=== PATIENT | female | born 1970 | race Caucasian/White ===

== ENCOUNTER 2020-10-26 06:55 | Outpatient (REF) | payer MEDICARE, MEDICAID, SELFPAY ==
[2020-10-26 11:20] LABS: MANUAL DIFF FLAG NO
[2020-10-26 11:39] LABS: Basophils Percent Auto 0.4 % (0-2); Eosinophils Percent Auto 2.6 % (0-4); Hematocrit 45.2 % (37-47); Hemoglobin 14.7 g/dl (12.0-16.0); Imm Gran Pct Auto 0.6 % (0.0-0.4); Lymphocytes Absolute Auto 3.1 X10*3/uL (1.2-4.9); Lymphocytes Percent Auto 19.8 % (20-40); Mean Corpuscular HGB Conc 32.5 g/dl (31.0-35.0); Mean Corpuscular Hemoglobin 28.9 pg (27.0-33.0); Mean Corpuscular Volume 88.8 fL (80-98); Mean Platelet Volume 11.4 fL (9.4-12.3); Monocytes Absolute Auto 0.9 X10*3/uL (0.1-1.2); Neutrophils Percent Auto 70.6 % (45-73); Platelet Count 374 X10*3/uL (160-400); Red Blood Count 5.09 X10*6/uL (4.20-5.50); Red Cell Distribution Width 13.8 % (11.0-16.0); White Blood Count 15.6 X10*3/uL (4.8-10.8)
[2020-10-26 11:40] LABS: Basophils Absolute Auto 0.1 X10*3/uL (0.0-0.2); Eosinophils Absolute Auto 0.4 X10*3/uL (0.0-0.4)
[2020-10-26 11:46] LABS: Alanine Aminotransferase 12 U/L (0-31); Albumin Level 4.1 g/dL (3.5-5.0); Alkaline Phosphatase 85 U/L (39-117); Anion Gap 15 (12-20); Aspartate Amino Transferase 10 U/L (5-31); Bilirubin Total 0.4 mg/dL (0.0-1.0); Blood Urea Nitrogen 9 mg/dL (9-16); Calcium 9.1 mg/dL (8.4-10.2); Carbon Dioxide 28 mmol/L (22-29); Chloride 102 mmol/L (96-108); Cholesterol 199 mg/dL; Estimated Glomerular Filt Rate > 60; Glucose Fasting 83 mg/dL (60-99); HDL Cholesterol 32 mg/dL; LDL Cholesterol Calculated 135 mg/dl; Potassium 4.9 mmol/l (3.3-5.1); Sodium 140 mmol/L (135-145); Total Protein 6.5 g/dL (6.5-8.0); Triglycerides 161 mg/dL
[2020-10-26 12:07] LABS: Thyroid Stimulating Hormone 1.55 uIU/mL (0.32-4.0); Vitamin D 25-OH Total 21.5 ng/mL (>30)
[2020-10-26 12:22] LABS: T4 Thyroxine 6.6 ug/dL (4.5-12.0)
[2020-10-26 12:24] LABS: Folate 3.8 ng/mL (> or = 4.0); Vitamin B12 242 pg/mL (200-900)
== END 2020-10-26 06:56 | disposition home or self-care (01) ==
LOC: HO.HMGCLDS 06:55
PROVIDERS: PCP Internal Medicine; Visit Provider Internal Medicine
DX: Z00.00 Encounter for general adult medical examination without abnormal findings (principal); E66.01 Morbid (severe) obesity due to excess calories; E78.00 Pure hypercholesterolemia, unspecified; M50.30 Other cervical disc degeneration, unspecified cervical region; K21.9 Gastro-esophageal reflux disease without esophagitis; R13.10 Dysphagia, unspecified; F17.200 Nicotine dependence, unspecified, uncomplicated
CPT/HCPCS: 36415; 80053; 80061; 82306; 82607; 82746; 84436; 84443; 85025

== ENCOUNTER 2020-11-02 13:27 | Outpatient (REF) | payer MEDICARE, MEDICAID, SELFPAY ==
--- NOTE | 2020-11-02 13:32 | XR_ITS ---
EXAMINATION: XR KNEE, RIGHT CLINICAL INFORMATION: Pain COMPARISON: Previous x-rays most recent April 2016 TECHNIQUE: Four views of the right knee. FINDINGS: Bone alignment is normal. No fracture or dislocation is seen. There is mild arthritis at the medial femoral tibial and patellofemoral joints with small osteophytes. There is no joint effusion. XR/XR knee RT 4V IMPRESSION: Mild arthritis at the medial femoral tibial and patellofemoral joints.
== END 2020-11-02 13:28 | disposition home or self-care (01) ==
LOC: HO.HMGCX 13:27
PROVIDERS: PCP Internal Medicine; Visit Provider Internal Medicine
DX: M25.561 Pain in right knee (principal)
CPT/HCPCS: 73564

== ENCOUNTER → 2020-12-29 09:21 | Outpatient (BNVA) | payer MEDICARE, MEDICAID, SELFPAY | PROVIDERS: PCP Internal Medicine; Visit Provider Orthopaedic Surgery | DX: M17.11 Unilateral primary osteoarthritis, right knee (principal) | CPT/HCPCS: 99202 ==

== ENCOUNTER 2021-01-26 06:54 | Outpatient (REF) | payer MEDICARE, MEDICAID, SELFPAY ==
[2021-01-26 11:04] LABS: MANUAL DIFF FLAG NO
[2021-01-26 11:22] LABS: Basophils Absolute Auto 0.1 X10*3/uL (0.0-0.2); Basophils Percent Auto 0.6 % (0-2); Eosinophils Absolute Auto 0.4 X10*3/uL (0.0-0.4); Eosinophils Percent Auto 3.1 % (0-4); Hematocrit 43.4 % (37-47); Hemoglobin 14.1 g/dl (12.0-16.0); Imm Gran Abs Auto 0.09 X10*3/uL (0.00-0.03); Imm Gran Pct Auto 0.6 % (0.0-0.4); Lymphocytes Absolute Auto 2.9 X10*3/uL (1.2-4.9); Lymphocytes Percent Auto 20.5 % (20-40); Mean Corpuscular HGB Conc 32.5 g/dl (31.0-35.0); Mean Corpuscular Volume 89.3 fL (80-98); Mean Platelet Volume 11.3 fL (9.4-12.3); Monocytes Absolute Auto 0.9 X10*3/uL (0.1-1.2); Monocytes Percent Auto 6.3 % (2-11); Neutrophils Absolute Auto 9.7 X10*3/uL (2.0-8.3); Neutrophils Percent Auto 68.9 % (45-73); Platelet Count 341 X10*3/uL (160-400); Red Blood Count 4.86 X10*6/uL (4.20-5.50); Red Cell Distribution Width 14.2 % (11.0-16.0); White Blood Count 14.1 X10*3/uL (4.8-10.8)
[2021-01-26 12:13] LABS: Free T4 (Free Thyroxine) 0.92 ng/dL (0.71-1.85); Vitamin D 25-OH Total 27.1 ng/mL (>30)
[2021-01-26 12:17] LABS: Alanine Aminotransferase 14 U/L (0-31); Albumin Level 4.2 g/dL (3.5-5.0); Alkaline Phosphatase 92 U/L (39-117); Anion Gap 15 (12-20); Aspartate Amino Transferase 11 U/L (5-31); Bilirubin Total 0.5 mg/dL (0.0-1.0); Blood Urea Nitrogen 10 mg/dL (9-16); Calcium 8.8 mg/dL (8.4-10.2); Carbon Dioxide 24 mmol/L (22-29); Chloride 105 mmol/L (96-108); Cholesterol 207 mg/dL; Estimated Glomerular Filt Rate > 60; Glucose Random 99 mg/dL (60-115); HDL Cholesterol 31 mg/dL; LDL Cholesterol Calculated 142 mg/dl; Potassium 4.2 mmol/L (3.3-5.1); Sodium 140 mmol/L (135-145); Total Protein 6.5 g/dL (6.5-8.0); Triglycerides 171 mg/dL
[2021-01-26 12:20] LABS: Folate 6.6 ng/mL (> or = 4.0); Vitamin B12 344 pg/mL (200-900)
== END 2021-01-26 06:55 | disposition home or self-care (01) ==
LOC: HO.HMGCLDS 06:54
PROVIDERS: PCP Internal Medicine; Visit Provider Internal Medicine
DX: E78.00 Pure hypercholesterolemia, unspecified (principal); E53.8 Deficiency of other specified B group vitamins; E55.9 Vitamin D deficiency, unspecified
CPT/HCPCS: 36415; 80053; 80061; 82306; 82607; 82746; 84439; 84443; 85025

== ENCOUNTER 2021-06-23 10:04 | Outpatient (REF) | payer MEDICARE, MEDICAID, SELFPAY ==
--- NOTE | ~2021-06-23 | MM_ITS ---
EXAMINATION: MM SCREENING DIGITAL BREAST TOMOSYNTHESIS, BILATERAL CLINICAL INFORMATION: Screening. Asymptomatic. The lifetime risk of breast cancer based on the Tyrer-Cuzick Model is 10%. COMPARISON: Mammography: 06/15/2020, 06/10/2019, 05/31/2018 TECHNIQUE: Digital breast tomosynthesis is performed in both the craniocaudal and mediolateral oblique views along with computer-aided detection (CAD). Synthesized 2D images are generated from the tomosynthesis. FINDINGS: There are scattered areas of fibroglandular density (ACR BI-RADS breast composition Category b). There are no significant masses, abnormal calcifications, or other abnormalities. Parenchymal pattern is similar to prior studies. The axilla and skin contours are unremarkable. MM/MM tomosynthesis screening BI IMPRESSION: No mammographic evidence of malignancy. ASSESSMENT: BI-RADS 1: Negative RECOMMENDATION: Routine annual mammography screening. This patient's information was entered into a reminder system with a target due date for their next mammogram.
== END 2021-06-23 10:05 | disposition home or self-care (01) ==
LOC: HO.MAMMO 10:04
PROVIDERS: Visit Provider Internal Medicine
DX: Z12.31 Encounter for screening mammogram for malignant neoplasm of breast (principal)
CPT/HCPCS: 77063; 77067

== ENCOUNTER 2021-08-10 07:20 | Outpatient (REF) | payer MEDICARE, MEDICAID, SELFPAY ==
[2021-08-10 11:29] LABS: MANUAL DIFF FLAG NO
[2021-08-10 11:33] LABS: Basophils Absolute Auto 0.1 X10*3/uL (0.0-0.2); Basophils Percent Auto 0.7 % (0-2); Eosinophils Absolute Auto 0.5 X10*3/uL (0.0-0.4); Eosinophils Percent Auto 3.6 % (0-4); Hematocrit 45.5 % (37-47); Hemoglobin 14.9 g/dl (12.0-16.0); Imm Gran Pct Auto 0.7 % (0.0-0.4); Lymphocytes Absolute Auto 3.3 X10*3/uL (1.2-4.9); Lymphocytes Percent Auto 24.6 % (20-40); Mean Corpuscular HGB Conc 32.7 g/dl (31.0-35.0); Mean Corpuscular Hemoglobin 28.9 pg (27.0-33.0); Mean Corpuscular Volume 88.3 fL (80-98); Mean Platelet Volume 11.2 fL (9.4-12.3); Monocytes Absolute Auto 0.7 X10*3/uL (0.1-1.2); Monocytes Percent Auto 5.2 % (2-11); Neutrophils Absolute Auto 8.8 X10*3/uL (2.0-8.3); Neutrophils Percent Auto 65.2 % (45-73); Platelet Count 365 X10*3/uL (160-400); Red Blood Count 5.15 X10*6/uL (4.20-5.50); Red Cell Distribution Width 13.7 % (11.0-16.0); White Blood Count 13.4 X10*3/uL (4.8-10.8)
[2021-08-10 12:06] LABS: Estimated Average Glucose 114 mg/dL; Hemoglobin A1c % 5.6 %
[2021-08-10 12:07] LABS: Alanine Aminotransferase 11 U/L (0-31); Albumin Level 4.3 g/dL (3.5-5.0); Alkaline Phosphatase 95 U/L (39-117); Anion Gap 15 (12-20); Aspartate Amino Transferase 12 U/L (5-31); Bilirubin Total 0.4 mg/dL (0.0-1.0); Blood Urea Nitrogen 10 mg/dL (9-16); Calcium 8.9 mg/dL (8.4-10.2); Carbon Dioxide 23 mmol/L (22-29); Chloride 105 mmol/L (96-108); Cholesterol 219 mg/dL; Estimated Glomerular Filt Rate > 60; Glucose Random 87 mg/dL (60-115); HDL Cholesterol 30 mg/dL; LDL Cholesterol Calculated 154 mg/dl; Potassium 4.7 mmol/L (3.3-5.1); Sodium 138 mmol/L (135-145); Total Protein 6.7 g/dL (6.5-8.0); Triglycerides 179 mg/dL
[2021-08-10 12:17] LABS: Free T4 (Free Thyroxine) 0.93 ng/dL (0.71-1.85); Thyroid Stimulating Hormone 1.84 uIU/mL (0.32-4.0); Vitamin D 25-OH Total 29.5 ng/mL (>30)
[2021-08-10 12:30] LABS: Folate 3.6 ng/mL (> or = 4.0); Vitamin B12 301 pg/mL (200-900)
== END 2021-08-10 07:21 | disposition home or self-care (01) ==
LOC: HO.HMGCLDS 07:20
PROVIDERS: PCP Internal Medicine; Visit Provider Internal Medicine
DX: E78.00 Pure hypercholesterolemia, unspecified (principal)
CPT/HCPCS: 36415; 80053; 80061; 82306; 82607; 82746; 83036; 84439; 84443; 85025

== ENCOUNTER → 2021-08-17 14:41 | Outpatient (BNVA) | payer MEDICARE, MEDICAID, SELFPAY | PROVIDERS: PCP Internal Medicine; Visit Provider Orthopaedic Surgery | DX: M79.642 Pain in left hand (principal); M79.641 Pain in right hand; R20.0 Anesthesia of skin; R20.2 Paresthesia of skin | CPT/HCPCS: 99202 ==

== ENCOUNTER 2021-09-16 08:46 | Outpatient (REF) | payer MEDICARE, MEDICAID, SELFPAY ==
--- NOTE | 2021-09-16 08:52 | EMG_ITS ---
HISTORY OF PRESENT ILLNESS: This is a 50-year-old woman with a 4-year history of bilateral upper extremity pain, numbness, and tingling with worsening electric shocks and sharp pains in the left wrist recently. PHYSICAL EXAMINATION: She is alert and oriented with normal intellectual functions. Cranial nerves II through XII are normal. Muscle tone and strength are normal. No Tinel or Phalen sign. IMPRESSION: Carpal tunnel syndrome. Nerve conduction EMG study impression: Mild to moderate carpal tunnel syndrome on the right. Mild carpal tunnel syndrome on the left. Normal EMG of the left C5-T1 innervated muscles. MD ELICEO De La Rosa/MEKA / [id number]
== END 2021-09-16 08:47 | disposition home or self-care (01) ==
LOC: HO.NEURO 08:46
PROVIDERS: Visit Provider Orthopaedic Surgery
DX: R20.0 Anesthesia of skin (principal); R20.2 Paresthesia of skin
CPT/HCPCS: 95885; 95913

== ENCOUNTER → 2021-09-28 12:32 | Outpatient (BNVA) | payer MEDICARE, MEDICAID, SELFPAY | PROVIDERS: PCP Internal Medicine; Visit Provider Orthopaedic Surgery | DX: G56.03 Carpal tunnel syndrome, bilateral upper limbs (principal) | CPT/HCPCS: 99212 ==

== ENCOUNTER 2021-10-06 10:18 | Day surgery (SDC) | payer MEDICARE, MEDICAID, SELFPAY ==
[2021-10-06 10:28] VITALS: BMI 40.2
[2021-10-06 10:36] VITALS: BP 160/92; PULSE 98; RESP 16; TEMP 36.3; O2SAT 97
--- NOTE | 2021-10-06 11:44 | MHC.SHP ---
Pre-Procedural Eval Section A Date of Service: 10/06/21 The patient is an INPATIENT: No Changes since office visit: No Cold of Flu in the past 2 weeks, No New Medical Problems, No Changes in Medication and No Patient answered all questions The History & Physical has been completed within 30 days and I have reviewed it.: Yes Section B Chief Complaint: carpal tunnel Allergies: Allergies Allergy/AdvReac Type Severity Reaction Status Date / Time amoxicillin [Amoxicillin] Allergy Mild HIVES/SHAKING, Verified 09/28/21 12:41 hives, hives azithromycin [From Zithromax] Allergy Mild NAUSEA Verified 09/28/21 12:41 doxycycline [Doxycycline] Allergy Mild VOMITING Verified 09/28/21 12:41 Plan I have reviewed the history and physical and performed a pertinent physical examination on my patient. No changes have occurred unless specified.
--- NOTE | 2021-10-06 11:45 | W.PM.OPN ---
Operative Note Operative Note Date of Service: 10/06/21 Narrative: Preop diagnosis: 1. left Carpal tunnel syndrome Postop diagnosis: same Procedure: 1. left Carpal tunnel release Surgeon: Rach Gonzalez MD Anesthesia: local block using 1% lidocaine with epinephrine Findings: Thickened transverse carpal ligament. EBL: Less than 5 mL Specimens: None Complications: None Disposition: Brought to recovery room in stable condition Plan: Follow-up for 10-14 days for wound check and suture removal Indications: The patient is 51 years old, with left carpal tunnel syndrome that has been unresponsive to nonoperative management. The risks and benefits of operative treatment including but not limited to risk of damage to blood vessels, nerves, tendons, infection, persistent pain, persistent symptoms, or possible need for additional surgery were discussed with the patient and the patient wishes to proceed with surgery. Procedure: Once consent was obtained a local block was performed using a combination of 1% lidocaine with epinephrine. The patient was then brought back to the operating suite and placed on the operative table in supine position. A tourniquet was applied to the proximal aspect of the left upper extremity and the limb was prepped and draped in a standard surgical fashion. Once assured that we had a good block, a 1.5 cm longitudinal incision was made centered over the carpal tunnel. The incision was made through the skin to the subcutaneous tissues using a #15 blade. Dissection was made down to the level of the transverse carpal ligament with care being taken to protect the palmar cutaneous nerve. Once the transverse carpal ligament was clearly visualized, a longitudinal incision was made in the transverse carpal ligament 1st using a #15 blade, then using tenotomy scissors under direct visualization. Care was taken to look for and protect the motor branch of the median nerve when seen in this area. Once satisfied with our carpal tunnel release the wound was copiously irrigated with normal saline and hemostasis was obtained with a brief period of local pressure. The skin edges were reapproximated with some 5.0 nylon suture material and a sterile dressing was applied. The patient appears to have tolerated the procedure well and with no complications. All digits were well vascularized at the conclusion of the case.
[2021-10-06 12:20] VITALS: BP 147/78; PULSE 83; RESP 18; TEMP 36.7; O2SAT 95
== END 2021-10-06 12:34 | disposition home or self-care (01) ==
PROVIDERS: PCP Internal Medicine; Visit Provider Orthopaedic Surgery
PROC: (CPT 64721; principal; 2021-10-06 11:50)
DX: G56.02 Carpal tunnel syndrome, left upper limb (principal); E66.9 Obesity, unspecified; Z68.41 Body mass index [BMI] 40.0-44.9, adult; Z88.0 Allergy status to penicillin; Z88.1 Allergy status to other antibiotic agents; F17.210 Nicotine dependence, cigarettes, uncomplicated
CPT/HCPCS: 64721

== ENCOUNTER → 2021-10-18 13:39 | Outpatient (BNVA) | payer MEDICARE, MEDICAID, SELFPAY | PROVIDERS: PCP Internal Medicine; Visit Provider Orthopaedic Surgery | DX: G56.03 Carpal tunnel syndrome, bilateral upper limbs (principal) | CPT/HCPCS: 99212 ==

== ENCOUNTER → 2021-11-29 09:46 | Outpatient (BNVA) | payer MEDICARE, MEDICAID, SELFPAY | PROVIDERS: Visit Provider Orthopaedic Surgery | DX: Z47.89 Encounter for other orthopedic aftercare (principal); G56.01 Carpal tunnel syndrome, right upper limb; Z86.69 Personal history of other diseases of the nervous system and sense organs | CPT/HCPCS: 99202; 99212 ==

== ENCOUNTER 2021-12-19 08:30 | Outpatient (RCR) | payer MEDICARE, MEDICAID, SELFPAY | END 2022-02-08 11:49 | disposition home or self-care (01) | LOC: HO.OT 08:30 | PROVIDERS: PCP Internal Medicine; Visit Provider Orthopaedic Surgery | DX: G56.02 Carpal tunnel syndrome, left upper limb (principal) | CPT/HCPCS: 97035; 97110; 97165 ==

== ENCOUNTER 2021-12-22 11:58 | Outpatient (REF) | payer MEDICARE, MEDICAID, SELFPAY ==
--- NOTE | ~2021-12-22 | XR_ITS ---
EXAMINATION: XR FOOT, LEFT CLINICAL INFORMATION: Left foot pain. COMPARISON: None TECHNIQUE: AP, lateral, and oblique views of the left foot. FINDINGS: Mild 1st metatarsophalangeal and hallux sesamoid joint space narrowing with tiny marginal osteophytes. No osseous erosion. No fracture or dislocation. Moderate plantar and tiny dorsal calcaneal enthesophytes. XR/XR foot LT min 3V IMPRESSION: Mild osteoarthritis at the 1st metatarsophalangeal joint and hallux sesamoids. Plantar and dorsal calcaneal spurs.
== END 2021-12-22 11:59 | disposition home or self-care (01) ==
LOC: HO.HMGCX 11:58
PROVIDERS: PCP Internal Medicine; Visit Provider Nurse Practitioner Family
DX: M79.672 Pain in left foot (principal)
CPT/HCPCS: 73630

== ENCOUNTER → 2022-01-03 09:04 | Outpatient (BNVA) | payer MEDICARE, MEDICAID, SELFPAY | PROVIDERS: PCP Internal Medicine; Visit Provider Orthopaedic Surgery | DX: Z47.89 Encounter for other orthopedic aftercare (principal); G56.01 Carpal tunnel syndrome, right upper limb; Z86.69 Personal history of other diseases of the nervous system and sense organs | CPT/HCPCS: 99212 ==

== ENCOUNTER → 2022-03-10 13:44 | Outpatient (BNVA) | payer MEDICARE, MEDICAID, SELFPAY | PROVIDERS: PCP Internal Medicine; Visit Provider Advanced Practice Midwife | DX: N63.20 Unspecified lump in the left breast, unspecified quadrant (principal); N64.4 Mastodynia | CPT/HCPCS: 99212 ==

== ENCOUNTER 2022-03-14 10:22 | Outpatient (REF) | payer MEDICARE, MEDICAID, SELFPAY ==
--- NOTE | ~2022-03-14 | MM_ITS ---
EXAMINATION: MM DIAGNOSTIC DIGITAL BREAST TOMOSYNTHESIS, BILATERAL US DIAGNOSTIC ULTRASOUND BREAST, LEFT CLINICAL INFORMATION: Recent burning pain and cramping near left areola. No discharge. Palpable fullness noted on clinical exam. The lifetime risk of breast cancer based on the Tyrer-Cuzick Model is 8%. COMPARISON: Mammography: 06/23/2021, 06/15/2020, 06/10/2019, 05/31/2018 TECHNIQUE: Digital breast tomosynthesis is performed in both the craniocaudal and mediolateral oblique views along with computer-aided detection (CAD). Synthesized 2D images are generated from the tomosynthesis. Additional right CC and left MLO views are obtained. Ultrasound left breast is targeted to the areas of clinical concern, retroareolar, periareolar, and 3:00 through 9:00 position. Grayscale imaging and color Doppler are performed without and with harmonics. FINDINGS: There are scattered areas of fibroglandular density (ACR BI-RADS breast composition Category b). Parenchymal pattern is similar to prior studies. There is no developing density or interval mass or architectural abnormality. No abnormal calcifications. There is chronic bilateral nipple retraction, similar to prior exams. There is no skin thickening or coarsening of the Dayday's ligaments. Ultrasound demonstrates no cystic or solid mass or architectural abnormality. No focal duct ectasia. No skin thickening or edema tracking in soft tissue planes. No hyperemia on color Doppler. Results are discussed with the patient and her mother at time of visit. MM/MM tomosynthesis diagnostic BI IMPRESSION: -No mammographic evidence of malignancy or inflammatory changes. -Mammography similar to prior studies. -Unremarkable targeted left breast ultrasound. ASSESSMENT: BI-RADS 2: Benign RECOMMENDATION: 1. Patient should be managed based on the clinical impression. If clinically indicated, further evaluation may be considered with surgical consult. Decision to proceed with biopsy should be based on clinical grounds and degree of clinical concern. 2. Otherwise, routine annual screening mammography. This patient's information was entered into a reminder system with a target due date for their next mammogram.
== END 2022-03-14 10:23 | disposition home or self-care (01) ==
LOC: HO.MAMMO 10:22
PROVIDERS: PCP Internal Medicine; Visit Provider Internal Medicine
DX: N64.4 Mastodynia (principal); N63.20 Unspecified lump in the left breast, unspecified quadrant
CPT/HCPCS: 76642; 77062; 77066

== ENCOUNTER 2022-07-10 09:01 | Outpatient (REF) | payer MEDICARE, MEDICAID, SELFPAY ==
[2022-07-10 12:06] LABS: Alanine Aminotransferase 12 U/L (0-31); Albumin Level 4.5 g/dL (3.5-5.0); Alkaline Phosphatase 87 U/L (39-117); Anion Gap 17 (12-20); Aspartate Amino Transferase 13 U/L (5-31); Bilirubin Total 0.3 mg/dL (0.0-1.0); Blood Urea Nitrogen 12 mg/dL (9-16); Carbon Dioxide 27 mmol/L (22-29); Chloride 102 mmol/L (96-108); Cholesterol 228 mg/dL; Estimated Glomerular Filt Rate > 60; Glucose Random 100 mg/dL (60-115); HDL Cholesterol 31 mg/dL; LDL Cholesterol Calculated 151 mg/dl; Potassium 4.7 mmol/L (3.3-5.1); Sodium 141 mmol/L (135-145); Total Protein 6.9 g/dL (6.5-8.0); Triglycerides 230 mg/dL
== END 2022-07-10 09:02 | disposition home or self-care (01) ==
LOC: HO.HMGCLDS 09:01
PROVIDERS: PCP Internal Medicine; Visit Provider Internal Medicine
DX: E78.00 Pure hypercholesterolemia, unspecified (principal)
CPT/HCPCS: 36415; 80053; 80061

== ENCOUNTER 2022-09-04 08:40 | Outpatient (REF) | payer MEDICARE, MEDICAID, SELFPAY ==
--- NOTE | ~2022-09-04 | XR_ITS ---
EXAMINATION: XR SHOULDER, RIGHT CLINICAL INFORMATION: Sprain of right shoulder joint. COMPARISON: None TECHNIQUE: AP external rotation, Grashey, scapular Y, and axillary views of the right shoulder. FINDINGS: There is mild reduction in the right AC joint space with moderate periarticular spurring. The glenohumeral joint space is preserved. No loose bodies or bony erosive changes seen. There is soft tissue calcification lateral to the greater tuberosity. No visible acute fracture or dislocation. XR/XR shoulder RT min 2V IMPRESSION: 1. Degenerative arthritic changes right A.C. joint. No visible acute fracture or dislocation seen. 2. Soft tissue calcification lateral to the greater tuberosity likely calcific tendinitis.
== END 2022-09-04 08:41 | disposition home or self-care (01) ==
LOC: HO.HMGCX 08:40
PROVIDERS: PCP Internal Medicine; Visit Provider Internal Medicine
DX: S43.401A Unspecified sprain of right shoulder joint, initial encounter (principal)
CPT/HCPCS: 73030

== ENCOUNTER → 2022-09-21 10:43 | Outpatient (BNVA) | payer MEDICARE, MEDICAID, SELFPAY | PROVIDERS: PCP Internal Medicine; Visit Provider Nurse Practitioner Family | DX: M50.322 Other cervical disc degeneration at C5-C6 level (principal); M50.323 Other cervical disc degeneration at C6-C7 level; M96.1 Postlaminectomy syndrome, not elsewhere classified; M54.2 Cervicalgia; Z98.1 Arthrodesis status | CPT/HCPCS: 99202 ==

== ENCOUNTER 2023-03-19 07:31 | Outpatient (REF) | payer MEDICARE, MEDICAID, SELFPAY ==
--- NOTE | ~2023-03-19 | MM_ITS ---
EXAMINATION: MM SCREENING DIGITAL BREAST TOMOSYNTHESIS, BILATERAL CLINICAL INFORMATION: Screening. Asymptomatic. The lifetime risk of breast cancer based on the Tyrer-Cuzick Model is 9%. COMPARISON: Mammography: 03/14/2022, 06/23/2021, 06/15/2020, 06/10/2019 TECHNIQUE: Digital breast tomosynthesis is performed in both the craniocaudal and mediolateral oblique views along with computer-aided detection (CAD). Synthesized 2D images are generated from the tomosynthesis. FINDINGS: There are scattered areas of fibroglandular density (ACR BI-RADS breast composition Category b). There are no significant masses, abnormal calcifications, or other abnormalities. Parenchymal pattern is similar to prior studies. There is no developing density or architectural abnormality. There is mild bilateral nipple retraction again seen similar to prior studies. The axilla and skin contours are unremarkable. No significant changes. MM/MM tomosynthesis screening BI IMPRESSION: No mammographic evidence of malignancy. ASSESSMENT: BI-RADS 2: Benign RECOMMENDATION: Routine annual mammography screening. This patient's information was entered into a reminder system with a target due date for their next mammogram.
== END 2023-03-19 07:32 | disposition home or self-care (01) ==
LOC: HO.MAMMO 07:31
PROVIDERS: PCP Internal Medicine; Visit Provider Internal Medicine
DX: Z12.31 Encounter for screening mammogram for malignant neoplasm of breast (principal)
CPT/HCPCS: 77063; 77067

== ENCOUNTER 2023-05-22 15:49 | Outpatient (AMB) | payer MEDICARE, MEDICAID, SELFPAY ==
[2023-05-22 15:50] VITALS: BP 142/88; PULSE 78; BMI 42.7
--- NOTE | 2023-05-22 15:50 | A.OFFPC_ITS ---
Vital Signs 05/22/23 15:50 Height 5 ft 1 in Weight 226 lb BMI 42.7 BP 142/88 H Blood Pressure Location Lt brachial Position Sitting Pulse 78 Pulse Source Pulse Oximeter Oxygen Delivery Method Room Air Intake Visit Reasons: Blood pressure, cholesterol Allergies amoxicillin [Amoxicillin] Allergy (Mild, Verified 05/22/23 15:51) HIVES/SHAKING, hives, hives azithromycin [From Zithromax] Allergy (Mild, Verified 05/22/23 15:51) NAUSEA doxycycline [Doxycycline] Allergy (Mild, Verified 05/22/23 15:51) VOMITING Tobacco use date assessed: 03/23/23 Dental Screening Dental Screen Date: 05/22/23 Did you have a dental visit in the last 12 months?: Yes Did you have a dental problem in the last 6 months where you did not have access to dental care?: No Was dental information given to patient?: Patient has dentist HPI Blood pressure, cholesterol HPI Details 52-year-old obese female smoker with GERD, cervical degenerative disc disease hypercholesterolemia generalized anxiety disorder coming in for follow- up. Last seen in February 2023 noted with an elevated blood pressure and has was advised to follow this up. Patient was advised to get blood work and for the anxiety was referred to counseling patient is here for follow-up mammograms up-to-date. Review of the notes has seen nurse practitioner for breast reduction referral due to the chronic neck pain.. states BP at home has been controlled SBP < 140 and DBP 80. blood work not done yet. for the breathing - doing good. PAtient complains of R CTS but wanted to postpone t but now it is causing problems and would like to see the Orthopedics. Patient has been very stressed out as mom is sick and patient is helping with that complains of pain on the left Achilles tendon deny any fall or trauma. Went to up-to-date and discussed about the information about the Achilles tendonitis and treatment also [facility] Medical History (Updated 05/22/23 @ 16:31 by Jaden Barros MD) Anxiety and depression Carpal tunnel syndrome Degenerative disc disease, cervical GERD (gastroesophageal reflux disease) Hiatal hernia Hypercholesterolemia Mass of breast, left Migraine Obesity Osteoarthritis of knees, bilateral Tobacco abuse Vitamin D deficiency Surgical History H/O arthroscopic knee surgery History of cervical discectomy History of D&C History of knee surgery History of tonsillectomy Family History Father Myocardial infarction Mother Myocardial infarction Carotid stenosis Cancer of anterior aspect of epiglottis Maternal Grandmother Stomach cancer Maternal Aunt Stomach cancer Breast cancer Maternal Uncle Cardiac arrest Social History Housing: House Alcohol intake: never Patient Tobacco Use Status: Current everyday Tobacco user Tobacco use type: Cigarette Cigarettes Per Day: 10 e-Cigarette/Vaping Use: Never Used Second Hand Smoke Exposure: Yes service: No Current occupational status: disabled Current occupation: rt hand Cognitive needs: No Hearing needs: No Vision needs: Yes Questionnaire PHQ-9 Over the last 2 weeks, how often have you been bothered by any of the following problems? 1. Little interest or pleasure in doing things: not at all 2. Feeling down, depressed, or hopeless: not at all 3. Trouble falling or staying asleep, or sleeping too much: not at all 4. Feeling tired or having little energy: not at all 5. Poor appetite or overeating: not at all 6. Feeling bad about yourself - or that you are a failure or have let yourself or your family down: not at all 7. Trouble concentrating on things, such as reading the newspaper or watching television: not at all 8. Moving or speaking so slowly that other people could have noticed. Or the opposite - being so fidgety or restless that you have been moving around a lot more than usual: not at all 9. Thoughts that you would be better off or of hurting yourself in some way: not at all Total score: 0 Depression Screening Interpretation: Negative Source: Developed by Drs. Rodney Ramires, Joao Gallegos and colleagues, with an educational hal from [employer]. Thrive Questionnaire Date Thrive assessed: 02/12/23 AUDIT C Alcohol Use Questionnaire (AUDIT-C) 1. How often do you have a drink containing alcohol?: Never Total Score: 0 Score Reviewed/Action Taken: No NA-7 AMB Questionnaire NA-7 Date NA - 7 assessed: 02/12/23 Source: Developed by Drs. Rodney Ramires, Haley B.W. Joao Mccracken and colleagues, with an educational hal from [employer]. Physical exam (Primary Care) Vital Signs: Last Vital Signs Pulse 78 05/22/23 15:50 BP 142/88 H 05/22/23 15:50 Oxygen Delivery Method Room Air 05/22/23 15:50 BMI result Body Mass Index 42.7 Tobacco/Smoking Status: Tobacco use Status Tobacco use date assessed 03/23/23 05/22/23 15:57 Patient Tobacco Use Status Current everyday Tobacco 05/22/23 15:57 Tobacco use type Cigarette 05/22/23 15:57 e-Cigarette/Vaping Use Never Used 05/22/23 15:57 PHQ-9: PHQ-9 Score PHQ-9: Total score 0 05/22/23 15:57 Depression Screening Interpretation: Negative Thrive Assessment: Date of Thrive Assessment Date Thrive assessed 02/12/23 05/22/23 15:57 Const General: alert; No acute distress Eyes Conjunctivae: conjunctivae normal Resp Auscultation: clear to auscultation bilaterally Cardio Rate: regular rate Rhythm: regular rhythm GI Inspection: Yes normal to inspection Extrem General: Yes normal to inspection and No edema Assessment and Plan Assessment & Plan (1) Blood pressure elevated without history of HTN: Code(s): R03.0 - Elevated blood-pressure reading, without diagnosis of hypertension Plan: Continue to monitor blood pressure. BP at home is good (2) Positive colorectal cancer screening using Cologuard test: Code(s): R19.5 - Other fecal abnormalities Plan: Reminded about colonoscopy (3) Generalized anxiety disorder: Code(s): F41.1 - Generalized anxiety disorder Plan: will ff up on the counselling (4) Tobacco abuse: Code(s): Z72.0 - Tobacco use Plan: Patient is strongly advised to stop! (5) GERD (gastroesophageal reflux disease): Code(s): K21.9 - Gastro-esophageal reflux disease without esophagitis Plan: Avoid the foods that causes that usually spicy foods, tomato products, juices, coffee, soda and foods that your sensitive to. After eating do not lie down, allow 3-4 hours before in lie down. And keep the head of bed above 30 degrees to avoid the acid from going up. (6) Hypercholesterolemia: Code(s): E78.00 - Pure hypercholesterolemia, unspecified Plan: Avoid fried foods, chicken skin, eggs, butter margarine, pastries and meat. Be it pork or beef they have a lot of cholesterol reminded about the blood work patient is on atorvastatin 10 mg once a day LDL goal of less than 130 and triglyceride of less than 150 (7) Obesity: Code(s): E66.9 - Obesity, unspecified Plan: Diet and exercise (8) Carpal tunnel syndrome of right wrist: Code(s): G56.01 - Carpal tunnel syndrome, right upper limb Plan: referral to orthopedic (9) Achilles tendinitis of left lower extremity: Code(s): M76.62 - Achilles tendinitis, left leg Plan: discussed about trreatment from up todate. Orders: Referrals Orthopedics Referral G56.01 - Carpal tunnel syndrome, right upper limb Coding Level of Care Code Est Pt Level 4 (98798) Diagnoses Blood pressure elevated without history of HTN R03.0 Positive colorectal cancer screening using Cologuard test R19.5 Generalized anxiety disorder F41.1 Tobacco abuse Z72.0 GERD (gastroesophageal reflux disease) K21.9 Hypercholesterolemia E78.00 Obesity E66.9 Carpal tunnel syndrome of right wrist G56.01 Achilles tendinitis of left lower extremity M76.62 Additional Codes PHQ-9 - 82182 - PHQ-9 Billing: Y ([id number])
== END 2023-05-22 16:38 | disposition home or self-care (01) ==
PROVIDERS: Visit Provider Internal Medicine
DX: R03.0 Elevated blood-pressure reading, without diagnosis of hypertension (principal); E66.9 Obesity, unspecified; K21.9 Gastro-esophageal reflux disease without esophagitis; Z68.41 Body mass index [BMI] 40.0-44.9, adult; F41.1 Generalized anxiety disorder; R19.5 Other fecal abnormalities; Z72.0 Tobacco use; E78.00 Pure hypercholesterolemia, unspecified; G56.01 Carpal tunnel syndrome, right upper limb; M76.62 Achilles tendinitis, left leg
CPT/HCPCS: 99214

== ENCOUNTER 2023-06-13 13:21 | Outpatient (AMB) | payer MEDICARE, MEDICAID, SELFPAY ==
[2023-06-13 13:32] VITALS: BMI 42.7
--- NOTE | 2023-06-13 13:32 | MHC.OFFVIS ---
Intake Vital Signs 06/13/23 13:32 Height 5 ft 1 in Weight 226 lb BMI 42.7 Intake Visit Reasons: on- Rt CTS Intake Note: Delma 52 yr old right hand dominant female presents today to discuss surgery for her right hand CTS. Hx of left CTR from 10/06/[address] Gonzalez. Allergies amoxicillin [Amoxicillin] Allergy (Mild, Verified 06/13/23 13:33) HIVES/SHAKING, hives, hives azithromycin [From Zithromax] Allergy (Mild, Verified 06/13/23 13:33) NAUSEA doxycycline [Doxycycline] Allergy (Mild, Verified 06/13/23 13:33) VOMITING HPI on- Rt CTS HPI Details Delma is a 52 year old woman who presents to discuss her right carpal tunnel syndrome. She complains of numbness in the median nerve distribution of her right hand. Symptoms intermittent, but daily, worse at night She has a hx of left CTR, DOS: 10/06/21. She says her sensation is mostly normal in her left hand and she is happy with the results of her surgery. [facility] Medical History (Updated 05/22/23 @ 16:31 by Jaden Barros MD) Anxiety and depression Carpal tunnel syndrome Degenerative disc disease, cervical GERD (gastroesophageal reflux disease) Hiatal hernia Hypercholesterolemia Mass of breast, left Migraine Obesity Osteoarthritis of knees, bilateral Tobacco abuse Vitamin D deficiency Surgical History H/O arthroscopic knee surgery History of cervical discectomy History of D&C History of knee surgery History of tonsillectomy Family History Father Myocardial infarction Mother Myocardial infarction Carotid stenosis Cancer of anterior aspect of epiglottis Maternal Grandmother Stomach cancer Maternal Aunt Stomach cancer Breast cancer Maternal Uncle Cardiac arrest Social History Housing: House Alcohol intake: never Patient Tobacco Use Status: Current everyday Tobacco user Tobacco use type: Cigarette Cigarettes Per Day: 10 e-Cigarette/Vaping Use: Never Used Second Hand Smoke Exposure: Yes service: No Current occupational status: disabled Current occupation: rt hand Cognitive needs: No Hearing needs: No Vision needs: Yes Review of Systems Const All systems reviewed & are unremarkable except as noted in HPI and below Physical Exam Vital Signs: BMI result Body Mass Index 42.7 Const General: cooperative, healthy appearing and no acute distress Orientation/consciousness: patient oriented x3 HEENT Head: Yes normocephalic and Yes atraumatic Eyes EOM: EOMs intact bilaterally Resp Effort & Inspection: normal respiratory effort and able to speak in complete sentences Cardio Jugular venous distension: no JVD Skin General skin exam: turgor normal Rashes: no rashes Neuro General: patient oriented x3 Extrem Other: Evaluation of Right Upper Extremity: The patient is alert, oriented, and in no acute distress Neuro: Decreased subjective sensation in the median nerve distribution of the right. Normal sensation to the right small finger. Normal sensation to the left hand No thenar or intrinsic wasting Good APB muscle belly firing and good finger cross Vascular: Cap refill brisk ROM: She can make a fist and extend all her digits No locking or catching Skin: No lacerations or abrasions. General: No Ecchymosis. No Erythema or evidence of infection. Nerve Conduction Study: IMPRESSION:? ? Mild to moderate carpal tunnel syndrome on the right. Mild carpal tunnel syndrome on the left. ? Normal EMG of the left C5-T1 innervated muscles. Josefina Field MD 09/16/2021 Psych Appearance: grossly normal Affect: normal affect Attitude: cooperative Assessment & Plan Assessment & Plan (1) Carpal tunnel syndrome of right wrist: Code(s): G56.01 - Carpal tunnel syndrome, right upper limb Plan Assessment & Plan: 1. Right Carpal tunnel syndrome, mild-moderate Symptoms intermittent, but daily, worse at night I educated her about this condition I discussed operative and non-operative treatment options The patient would like to proceed with surgery The risks and benefits of operative treatment were discussed with the patient and the patient wishes to proceed with surgery. These risks include, but are not limited to risk of damage to blood vessels, nerves, tendons, infection, recurrence, incomplete relief of preoperative symptoms, persistent pain, possible need for further surgery and the risks associated with regional blocks and anesthesia. The plan is to take the patient to the operating room sometime in the next few weeks for the following procedures: 1. Right carpal tunnel release, under local All of the preoperative paperwork including the consent was filled out today. All the patient's questions were answered. The patient understands that they will be contacted by our medical doctor nuclear medicine soon to schedule this procedure She denies Diabetes, blood thinners, asthma, heart, lung, kidney issues 2. Left Carpal tunnel syndrome, S/P release DOS: 10/06/21 Excellent resolution of symptoms, now With normal sensation Scribed for Rach Gonzalez MD by Raúl Eden, medical insurance coder, on 06/13/23 at 2:10 PM, EST. Coding Level of Care Code Est Pt Level 4 (63336) Diagnoses Carpal tunnel syndrome of right wrist G56.01
== END 2023-06-13 15:27 | disposition home or self-care (01) ==
PROVIDERS: PCP Internal Medicine; Visit Provider Orthopaedic Surgery
DX: G56.01 Carpal tunnel syndrome, right upper limb (principal)
CPT/HCPCS: 99214

== ENCOUNTER → 2023-06-13 13:21 | Outpatient (BNVA) | payer MEDICARE, MEDICAID, SELFPAY | PROVIDERS: PCP Internal Medicine; Visit Provider Orthopaedic Surgery | DX: G56.01 Carpal tunnel syndrome, right upper limb (principal) | CPT/HCPCS: 99212 ==

== ENCOUNTER 2023-06-19 15:04 | Emergency (ER) | payer MEDICARE, MEDICAID, SELFPAY ==
--- NOTE | ~2023-06-19 | XR_ITS ---
EXAMINATION: XR CHEST CLINICAL INFORMATION: Shortness of breath COMPARISON: Chest x-ray December 16, 2016 TECHNIQUE: Frontal view of the chest was obtained. FINDINGS: Cardiac silhouette is normal in size. Lungs are adequately aerated. Subtle patchy opacity of the right lower lung, nonspecific. No gross lobar consolidation. No pleural effusion or pneumothorax. Partially visualized surgical changes of the cervical spine. XR/XR chest 1V IMPRESSION: Subtle patchy opacity of the right lower lung. This is a nonspecific finding and may represent atelectasis, however, a developing infiltrate is also within the differential. Clinical correlation recommended.
[2023-06-19 15:21] VITALS: BP 159/78; PULSE 81; RESP 24; TEMP 36; O2SAT 97; BMI 41.6
--- NOTE | 2023-06-19 15:21 | ED_ITS ---
HPI - General Adult General Chief complaint: Dyspnea Stated complaint: Diff breathing Time Seen by Provider: 06/19/23 17:36 Source: patient Mode of arrival: ambulatory Limitations: no limitations History of Present Illness HPI narrative: Patient is a 52-year-old female who presents emergency department for evaluation of shortness of breath. She reports that yesterday she began feeling short of breath with associated productive cough. She trialed her albuterol inhaler as prescribed by her PCP with some improvement. She denies dizziness, headache, neck pain, chest pain, back pain, nausea vomiting, abdominal pain. Related Data Home Medications Medication Instructions Recorded Confirmed cholecalciferol (vitamin D3) 50 50 mcg PO DAILY 10/28/20 02/12/23 mcg (2,000 unit) capsule uhvwquzr-wkyl-kzce 8 mg-folic 400 1 tab PO DAILY 10/28/20 02/12/23 mcg-K 50 mcg-lutein 300 mcg tablet (Centrum Silver Women) Previous Rx's Medication Instructions Recorded cyanocobalamin (vitamin B-12) 1,000 mcg PO DAILY #30 caps 10/28/20 1,000 mcg capsule folic acid 1 mg tablet 1 mg PO DAILY 90 days #90 tabs 08/12/21 albuterol sulfate 90 mcg/actuation 2 puff inhalation Q6H PRN 02/12/23 aerosol inhaler (Ventolin HFA) shortness of breath or wheezing #8.5 grams atorvastatin 10 mg tablet 10 mg PO DAILY #90 tabs 02/12/23 blood pressure monitor (Blood #1 ea 02/12/23 Pressure Kit) [id number]-hadsxwema-fpwnkchet 3.5 4 drp otic (ears) Q8H 10 days #10 05/03/23 mg-10,000 unit/mL-1 % ear mL drops,susp azithromycin 250 mg tablet See Rx Instructions PO .COMPLEX #6 06/19/23 tabs prednisone 20 mg tablet 40 mg PO DAILY 5 days #10 tabs 06/19/23 Allergies Allergy/AdvReac Type Severity Reaction Status Date / Time amoxicillin [Amoxicillin] Allergy Mild HIVES/SHAKING, Verified 06/19/23 15:21 hives, hives azithromycin [From Zithromax] Allergy Mild NAUSEA Verified 06/19/23 15:21 doxycycline [Doxycycline] Allergy Mild VOMITING Verified 06/19/23 15:21 Review of Systems Review of Systems: Yes all other systems are reviewed and are negative [facility] Past Medical History Attestation statement: The following information was validated with the patient. Source: old records reviewed Medical History Anxiety and depression Carpal tunnel syndrome Degenerative disc disease, cervical GERD (gastroesophageal reflux disease) Hiatal hernia Hypercholesterolemia Mass of breast, left Migraine Obesity Osteoarthritis of knees, bilateral Tobacco abuse Vitamin D deficiency Surgical History H/O arthroscopic knee surgery History of cervical discectomy History of D&C History of knee surgery History of tonsillectomy Family History Family History Father Myocardial infarction Mother Myocardial infarction Carotid stenosis Cancer of anterior aspect of epiglottis Maternal Grandmother Stomach cancer Maternal Aunt Stomach cancer Breast cancer Maternal Uncle Cardiac arrest Social History Social History Housing: House Alcohol intake: current Alcohol intake frequency: holidays/special occasions only Patient Tobacco Use Status: Current everyday Tobacco user Tobacco use type: Cigarette Cigarettes Per Day: 10 Smoked in Last 30 Days: Yes e-Cigarette/Vaping Use: Never Used Second Hand Smoke Exposure: Yes Use of substances other than those prescribed or required for medical reasons: No Advance Directives: No Advance Directives Information Provided: No service: No Current occupational status: disabled Current occupation: rt hand Cognitive needs: No Hearing needs: No Vision needs: Yes Physical Exam ED Vital Signs: Vital Signs - 24 hr 06/19/23 15:21 06/19/23 16:00 06/19/23 17:46 Temperature 96.8 F Pulse Rate 81 75 80 Respiratory Rate 24 H 16 18 Blood Pressure 159/78 H 162/66 H Pulse Oximetry 97 96 Oxygen Delivery Method Room Air Room Air BMI result Body Mass Index 41.6 Appearance: Alert.?Oriented to person, place and time. No acute distress.?Normal affect. Eyes: Pupils equal, round and reactive to light.? ENT: Pharynx normal.?? Neck: Normal inspection.? Neck supple.?? CVS: Heart sounds normal. Normal heart rate and rhythm.? Pulses normal.?? Respiratory: No respiratory distress.? Lung sounds with inspiratory wheezing in the right upper lobe? Abdomen: Soft and non-tender. Normoactive bowel sounds. ?? Skin: Skin warm and dry.? Normal skin color.? ?? Extremities: No lower extremity edema.? No calf ttp? Neuro: Moves all extremities spontaneously. Sensation intact bilaterally. Ambulates with normal steady gait. Course Course Course Narrative: This is an RME: Additional HPI, ROS, PE not included below will be deferred to primary provider. Patient is a 52 year old female presenting with shortness of breath. She reports she has been using an albuterol inhaler but it is not giving her much relief. She reports she feels as if she cannot get a deep breath in. Rates her pain a 6-7/10. Patient currently smokes but reports she is trying to cut down. Plan: nebs, [facility] Medications Administered Discontinued Medications Generic Name Dose Route Start Last Admin Trade Name Freq PRN Reason Stop Dose Admin Albuterol Sulfate 4 puff 06/19/23 15:34 06/19/23 15:56 Albuterol Sulfate 90 Mcg 8 Gm Inhaler INHALE 06/19/23 15:35 4 puff ONCE ONE Administration Medical Decision Making Medical Decision Making MDM Narrative: Patient is a 52-year-old female with past medical history of her carpal tunnel syndrome, osteoarthritis, B12 deficiency, folate deficiency, GERD, hypercholesterolemia, obesity presenting to emergency department for evaluation of shortness of breath. The time my examination she is overall well-appearing, she received albuterol inhalation with improvement in her symptoms. She is not tachycardic, hypoxic, or tachypneic. She is without chest pain, unlikely ACS, no risk factors for PE. She does have mild inspiratory wheezing in the right upper lobe otherwise lung sounds are clear. Reviewed chest x-ray which reveals a subtle patchy opacity of the right lower lobe representing atelectasis versus developing infiltrate. I reviewed these findings with patient. Suspect a possible early pneumonia verses underlying undiagnosed COPD with exacerbation given smoking history. She is awaiting an evaluation with pulmonology. Discussed with patient plan of care, she will be discharged home with inhaler, course of prednisone, and azithromycin given her allergies to amoxicillin and doxycycline. She is going to contact her primary care provider tomorrow to arrange for a follow-up visit. She will return back to emergency department any new or worsening symptoms or concerns. Differential Diagnosis Differential Diagnoses: The differential diagnosis associated with the presentation includes (As noted above) Admission/Observation Consideration of admission/observation: Escalation of care including admission/observation considered (I considered admission for shortness of breath, after examination did not feel necessary) Independent Interpretation I performed an independent interpretation of an: Plain X-Ray (Have personally interpreted chest x-ray and agree with radiologist impression) Radiology Impression Discussion of test interpretation with radiology: I have reviewed the radiologist's reading. Radiologist Impression: XR/XR chest 1V IMPRESSION: Subtle patchy opacity of the right lower lung. This is a nonspecific finding and may represent atelectasis, however, a developing infiltrate is also within the differential. Clinical correlation recommended. External Record Review External record reviewed: Outpatient record Tests considered The following testing was considered but not selected: Considered serum labs, nontoxic, afebrile, no evidence of sepsis, labs deferred Prescription Management I considered prescription management with: Antibiotic Discharge Plan Discharge Clinical Impression: Pneumonia Patient Disposition: Home, Self-Care Instructions: Community Acquired Pneumonia (ED) Additional Instructions: Please complete the entire course of antibiotics as prescribed. Take the prednisone with food to prevent stomach upset. Continue taking albuterol inhaler as prescribed. Contact your primary care provider to arrange for a follow-up visit within 1-3 days. Return back to emergency department any new or worsening symptoms or concerns. Prescriptions: New prednisone 20 mg tablet 40 mg PO DAILY 5 Days Qty: 10 0RF azithromycin 250 mg tablet See Rx Instructions .ROUTE .COMPLEX Qty: 6 0RF Rx Instructions: For 250 mg dose pack: take 500 mg today (day 1), then 250 mg for 4 days (days 2-5) No Action albuterol sulfate [Ventolin HFA] 90 mcg/actuation HFA aerosol inhaler 2 puff inhalation Q6H PRN (Reason: shortness of breath or wheezing) Qty: 8.5 0RF pojhtufj-dcjzhqimx-RG 3.5-10,000-1 mg/mL-unit/mL-% drops,suspension 4 drp otic (ears) Q8H 10 Days Qty: 10 0RF Centrum Silver Women 8 mg iron-400 mcg-300 mcg tablet 1 tab PO DAILY cholecalciferol (vitamin D3) 50 mcg (2,000 unit) capsule 50 mcg PO DAILY cyanocobalamin (vitamin B-12) 1,000 mcg capsule 1,000 mcg PO DAILY Qty: 30 3RF folic acid 1 mg tablet 1 mg PO DAILY 90 Days Qty: 90 3RF atorvastatin 10 mg tablet 10 mg PO DAILY Qty: 90 2RF (DME) blood pressure monitor [Blood Pressure Kit] Kit See Rx Instructions .ROUTE .MEDSUPPLY Qty: 1 0RF Rx Instructions: As directed Referrals: Po,Jaden Ellis MD [Primary Care Provider] - Interventions: ED Discharge Assessment Last Done: 06/19/23 18:45 Discharge Date/Time: 06/19/23 18:46
[2023-06-19] MEDS: Albuterol Sulfate 90 MCG 8 GM INHALER 4 PUFF INHALE (15:56)
[2023-06-19 16:00] VITALS: PULSE 75; RESP 16; O2SAT 98
[2023-06-19 17:46] VITALS: BP 162/66; PULSE 80; RESP 18; O2SAT 96
== END 2023-06-19 18:46 | disposition home or self-care (01) ==
PROVIDERS: Emergency Provider Emergency Medicine; PCP Internal Medicine
DX: J18.9 Pneumonia, unspecified organism (principal); R06.02 Shortness of breath; R05.9 Cough, unspecified
CPT/HCPCS: 71045; 94640; 99284

== ENCOUNTER 2023-07-12 11:48 | Day surgery (SDC) | payer MEDICARE, MEDICAID, SELFPAY ==
[2023-07-12 12:17] VITALS: BP 143/73; PULSE 101; RESP 18; TEMP 36.1; O2SAT 98; BMI 41.1
--- NOTE | 2023-07-12 14:05 | MHC.SHP ---
Pre-Procedural Eval Section A Date of Service: 07/12/23 The patient is an INPATIENT: No Changes since office visit: No Cold of Flu in the past 2 weeks, No New Medical Problems, No Changes in Medication and No Patient answered all questions The History & Physical has been completed within 30 days and I have reviewed it.: Yes Section B Chief Complaint: Carpal tunnel syndrome, right upper limb Allergies: Allergies Allergy/AdvReac Type Severity Reaction Status Date / Time amoxicillin [Amoxicillin] Allergy Mild HIVES/SHAKING, Verified 06/19/23 15:21 hives, hives azithromycin [From Zithromax] Allergy Mild NAUSEA Verified 06/19/23 15:21 doxycycline [Doxycycline] Allergy Mild VOMITING Verified 06/19/23 15:21 Plan I have reviewed the history and physical and performed a pertinent physical examination on my patient. No changes have occurred unless specified. Time Spent With Patient Time: Total time managing care of this patient today ____ minutes.
--- NOTE | 2023-07-12 14:05 | W.PM.OPN ---
Operative Note Operative Note Date of Service: 07/12/23 Narrative: Preop diagnosis: 1. right Carpal tunnel syndrome Postop diagnosis: same Procedure: 1. right Carpal tunnel release Surgeon: Rach Gonzalez MD Anesthesia: local block using 1% lidocaine with epinephrine Findings: Thickened transverse carpal ligament. EBL: Less than 5 mL Specimens: None Complications: None Disposition: Brought to recovery room in stable condition Plan: Follow-up for 10-14 days for wound check and suture removal Indications: The patient is 52 years old, with right carpal tunnel syndrome that has been unresponsive to nonoperative management. The risks and benefits of operative treatment including but not limited to risk of damage to blood vessels, nerves, tendons, infection, persistent pain, persistent symptoms, or possible need for additional surgery were discussed with the patient and the patient wishes to proceed with surgery. Procedure: Once consent was obtained a local block was performed using a combination of 1% lidocaine with epinephrine. The patient was then brought back to the operating suite and placed on the operative table in supine position. The right upper extremity was prepped and draped in a standard surgical fashion. Once assured that we had a good block, a 2.0 cm longitudinal incision was made centered over the carpal tunnel. The incision was made through the skin to the subcutaneous tissues using a #15 blade. Dissection was made down to the level of the transverse carpal ligament with care being taken to protect the palmar cutaneous nerve. Once the transverse carpal ligament was clearly visualized, a longitudinal incision was made in the transverse carpal ligament 1st using a #15 blade, then using tenotomy scissors under direct visualization. Care was taken to look for and protect the motor branch of the median nerve when seen in this area. Once satisfied with our carpal tunnel release the wound was copiously irrigated with normal saline and hemostasis was obtained with a brief period of local pressure. The skin edges were reapproximated with some 5.0 nylon suture material and a sterile dressing was applied. The patient appears to have tolerated the procedure well and with no complications. All digits were well vascularized at the conclusion of the case.
== END 2023-07-12 14:56 | disposition home or self-care (01) ==
PROVIDERS: PCP Internal Medicine; Visit Provider Orthopaedic Surgery
PROC: (CPT 64721; principal; 2023-07-12 13:20)
DX: G56.01 Carpal tunnel syndrome, right upper limb (principal); R20.0 Anesthesia of skin; E55.9 Vitamin D deficiency, unspecified; F41.8 Other specified anxiety disorders; E66.9 Obesity, unspecified; Z68.41 Body mass index [BMI] 40.0-44.9, adult; Z88.1 Allergy status to other antibiotic agents; F17.210 Nicotine dependence, cigarettes, uncomplicated
CPT/HCPCS: 64721; J0171

== ENCOUNTER → 2023-07-12 11:48 | Outpatient (BNV) | payer MEDICARE, MEDICAID, SELFPAY | PROVIDERS: PCP Internal Medicine; Visit Provider Orthopaedic Surgery | DX: G56.01 Carpal tunnel syndrome, right upper limb (principal) | CPT/HCPCS: 64721 ==

== ENCOUNTER 2023-07-24 13:24 | Outpatient (AMB) | payer MEDICARE, MEDICAID, SELFPAY ==
[2023-07-24 13:31] VITALS: BMI 41.1
--- NOTE | 2023-07-24 13:31 | MHC.OFFVIS ---
Intake Vital Signs 07/24/23 13:31 Height 5 ft 2 in Weight 225 lb BMI 41.1 Intake Visit Reasons: PO RT CTR 07/12/23 Intake Note: Delma is a 52 year old right hand dominant female who presents today for a post op appointment s/p right CTR 07/12/23 AR. Patient reports her symptoms has improved. She states that she is having some pain in the base of the thumb. Allergies amoxicillin [Amoxicillin] Allergy (Mild, Verified 07/24/23 13:42) HIVES/SHAKING, hives, hives azithromycin [From Zithromax] Allergy (Mild, Verified 07/24/23 13:42) NAUSEA doxycycline [Doxycycline] Allergy (Mild, Verified 07/24/23 13:42) VOMITING HPI PO RT CTR 07/12/23 HPI Details Delma is a 52 year old woman who presents S/P right carpal tunnel release, DOS: 07/12/23 She says her sensation has improved and she had good resolution of her nighttime symptoms. She does complain of a new pain at the base of her thumb. She says she felt it pulling during her surgery and has persisted in being sore since. She has a hx of left CTR, DOS: 10/06/21. She says her sensation is mostly normal in her left hand and she is happy with the results of her surgery. [facility] Medical History Anxiety and depression Carpal tunnel syndrome Degenerative disc disease, cervical GERD (gastroesophageal reflux disease) Hiatal hernia Hypercholesterolemia Mass of breast, left Migraine Obesity Osteoarthritis of knees, bilateral Tobacco abuse Vitamin D deficiency Surgical History H/O arthroscopic knee surgery History of cervical discectomy History of D&C History of knee surgery History of tonsillectomy Family History Father Myocardial infarction Mother Myocardial infarction Carotid stenosis Cancer of anterior aspect of epiglottis Maternal Grandmother Stomach cancer Maternal Aunt Stomach cancer Breast cancer Maternal Uncle Cardiac arrest Social History Housing: House Alcohol intake: current Alcohol intake frequency: holidays/special occasions only Patient Tobacco Use Status: Current everyday Tobacco user Tobacco use type: Cigarette Cigarettes Per Day: 10 e-Cigarette/Vaping Use: Never Used Second Hand Smoke Exposure: Yes service: No Current occupational status: disabled Current occupation: rt hand Cognitive needs: No Hearing needs: No Vision needs: Yes Review of Systems Const All systems reviewed & are unremarkable except as noted in HPI and below Physical Exam Vital Signs: BMI result Body Mass Index 41.1 Const General: no acute distress and alert Orientation/consciousness: patient oriented x3 Neuro General: patient oriented x3 Extrem Other: The patient was alert oriented and in no acute distress The incision is healing well with no erythema drainage or evidence of infection. Sutures removed and Steri-Strips applied She can make a fist and extend all her digits Good APB muscle belly firing Some soreness a the thumb side of the incision. I massaged this somewhat in clinic and she says this felt better for her Sensation is improved and now normal. Cap refill is brisk Nerve Conduction Study: IMPRESSION:? ? Mild to moderate carpal tunnel syndrome on the right. Mild carpal tunnel syndrome on the left. ? Normal EMG of the left C5-T1 innervated muscles. Josefina Field MD 09/16/2021 Psych Appearance: grossly normal Affect: normal affect Attitude: cooperative Assessment & Plan Assessment & Plan (1) Carpal tunnel syndrome of right wrist: Code(s): G56.01 - Carpal tunnel syndrome, right upper limb Plan Assessment & Plan: 1. Right Carpal tunnel syndrome,S/P release DOS: 07/12/23 Pre-operative symptoms intermittent, but daily, worse at night Now with normal sensation and good resolution of her nighttime symptoms The patient appears to be doing well post-operatively I educated her about the post-operative course I explained the signs and symptoms of infection, if the patient develops any new or worsening erythema, drainage, pain, or warmth they should contact the clinic or attend the ED. I discussed activity modifications, she is to lift nothing heavier than a cellphone for the next two weeks She will perform gentle ROM exercises at home She should avoid any underwater activities for the next 5 days She should gently massage about the incision site to reduce the risk of hypersensitivity She can follow up prn 2. Left Carpal tunnel syndrome, S/P release DOS: 10/06/21 Excellent resolution of symptoms, now with normal sensation Scribed for Rach Gonzalez MD by Raúl Eden, medical services coordinator, on 07/24/23 at 1:55 PM, EST. Coding Level of Care Code Global (92195) Diagnoses Carpal tunnel syndrome of right wrist G56.01
== END 2023-07-24 13:54 | disposition home or self-care (01) ==
PROVIDERS: PCP Internal Medicine; Visit Provider Orthopaedic Surgery
DX: G56.01 Carpal tunnel syndrome, right upper limb (principal)
CPT/HCPCS: 99024

== ENCOUNTER → 2023-07-24 13:24 | Outpatient (BNVA) | payer MEDICARE, MEDICAID, SELFPAY | PROVIDERS: PCP Internal Medicine; Visit Provider Orthopaedic Surgery ==

== ENCOUNTER 2023-12-17 16:56 | Outpatient (AMB) | payer MEDICARE, MEDICAID, SELFPAY ==
--- NOTE | 2023-12-17 16:57 | MHC.PC.OV ---
Vital Signs 12/17/23 16:59 Height 5 ft 2 in Weight 231 lb 8 oz BMI 42.3 BP 120/70 Blood Pressure Location Rt brachial Position Sitting Pulse 87 Pulse Source Pulse Oximeter Pulse Oximetry (%) 97 Oxygen Delivery Method Room Air Intake Visit Reasons: Neck Pain Intake Note: Patient is here today for neck pain with left arm pain Community Placement Worker Required: No International First Officer: Not Required per policy Accompanied by: Self / Same As Patient Allergies amoxicillin [Amoxicillin] Allergy (Mild, Verified 12/17/23 16:59) HIVES/SHAKING, hives, hives azithromycin [From Zithromax] Allergy (Mild, Verified 12/17/23 16:59) NAUSEA doxycycline [Doxycycline] Allergy (Mild, Verified 12/17/23 16:59) VOMITING Tobacco use date assessed: 12/17/23 Dental Screening Dental Screen Date: 12/17/23 Did you have a dental visit in the last 12 months?: Yes Did you have a dental problem in the last 6 months where you did not have access to dental care?: No Was dental information given to patient?: Patient has dentist HPI Neck Pain HPI Details 53-year-old morbidly obese female smoker with a history of generalized anxiety disorder hypercholesterolemia last seen in May 2023 with concerns about blood pressure being elevated and had a history of positive colorectal cancer screening from Cologuard test. Patient is here for follow-up. Patient had the carpal tunnel release 07/12/2023 right 10/06/2021 left carpal tunnel release patient also had shortness of breath in June 2023 diagnosis of pneumonia and was placed on Zithromax and prednisone. complains of numnbess of the R hand but feels pain from the posterior neck area radiating to the L shoulder . 3 week s now. Fall or trauma. Patient does not remember of any traumatic event. [facility] Medical History Anxiety and depression Carpal tunnel syndrome Degenerative disc disease, cervical GERD (gastroesophageal reflux disease) Hiatal hernia Hypercholesterolemia Mass of breast, left Migraine Obesity Osteoarthritis of knees, bilateral Tobacco abuse Vitamin D deficiency Surgical History History of knee surgery History of tonsillectomy History of cervical discectomy History of D&C H/O arthroscopic knee surgery Family History Father Myocardial infarction Mother Myocardial infarction Carotid stenosis Cancer of anterior aspect of epiglottis Maternal Grandmother Stomach cancer Maternal Aunt Stomach cancer Breast cancer Maternal Uncle Cardiac arrest Social History Housing: House Alcohol intake: current Alcohol intake frequency: holidays/special occasions only Patient Tobacco Use Status: Current everyday Tobacco user Tobacco use type: Cigarette Cigarettes Per Day: 10 e-Cigarette/Vaping Use: Never Used Second Hand Smoke Exposure: Yes service: No Current occupational status: disabled Current occupation: rt hand Cognitive needs: No Hearing needs: No Vision needs: Yes Questionnaire PHQ-9 Over the last 2 weeks, how often have you been bothered by any of the following problems? 1. Little interest or pleasure in doing things: not at all 2. Feeling down, depressed, or hopeless: more than half the days 3. Trouble falling or staying asleep, or sleeping too much: several days 4. Feeling tired or having little energy: not at all 5. Poor appetite or overeating: not at all 6. Feeling bad about yourself - or that you are a failure or have let yourself or your family down: not at all 7. Trouble concentrating on things, such as reading the newspaper or watching television: not at all 8. Moving or speaking so slowly that other people could have noticed. Or the opposite - being so fidgety or restless that you have been moving around a lot more than usual: not at all 9. Thoughts that you would be better off or of hurting yourself in some way: not at all Total score: 3 Depression Screening Interpretation: Positive Depression Screening Done: Yes Source: Developed by Drs. Rodney Ramires, Haley Mccracken, Joao Reddy and colleagues, with an educational hal from [employer]. Thrive Questionnaire Date Thrive assessed: 12/17/23 I am a: Patient What is your living situation today?: I have a steady place to live Within the past 12 months, did the food you bought not last and you didn't have the money to get more?: Never true Within the past 12 months, did you worry whether your food would run out before you got money to buy more?: Never true Do you have trouble paying for medicines?: No Do you have trouble getting transportation to medical appointments?: No Do you have trouble paying your heating and electricity bill?: No Do you have trouble taking care of your child, family member or friend?: No Do you have trouble with day-to-day activities such as bathing, preparing meals, shopping, managing finances, etc.?: No Are you currently unemployed and looking for a job?: No Are you interested in more education?: No Currently or been in a relationship where the following occur: no concerns reported THRIVE Score: 0 AUDIT C Alcohol Use Questionnaire (AUDIT-C) 1. How often do you have a drink containing alcohol?: Never Total Score: 0 NA-7 AMB Questionnaire NA-7 Date NA - 7 assessed: 12/17/23 Feeling nervous, anxious, or on edge: 0 = Not at all Not being able to stop or control worryin = Not at all Worrying too much about different things: 0 = Not at all Trouble relaxin = Not at all Being so restless that it is hard to sit still: 0 = Not at all Becoming easily annoyed or irritable: 0 = Not at all Feeling afraid as if something awful might happen: 0 = Not at all Total NA-7 score (0-4 normal; 5-9 mild; 10-14 moderate; 15-21 severe): 0 Source: Developed by Drs. Rodney Ramires, Haley Mccracken, Joao Reddy and colleagues, with an educational hal from [employer]. Physical exam (Primary Care) Vital Signs: Last Vital Signs Pulse 87 12/17/23 16:59 BP 120/70 12/17/23 16:59 Pulse Ox 97 12/17/23 16:59 Oxygen Delivery Method Room Air 12/17/23 16:59 BMI result Body Mass Index 42.3 Tobacco/Smoking Status: Tobacco use Status Tobacco use date assessed 12/17/23 12/17/23 17:07 Patient Tobacco Use Status Current everyday Tobacco 12/17/23 16:57 Tobacco use type Cigarette 12/17/23 16:57 e-Cigarette/Vaping Use Never Used 12/17/23 16:57 PHQ-9: PHQ-9 Score PHQ-9: Total score 3 12/17/23 17:07 Depression Screening Interpretation: Positive Thrive Assessment: Date of Thrive Assessment Date Thrive assessed 12/17/23 12/17/23 17:07 Currently or been in a relationship where the following occur: no concerns reported Const General: alert; No acute distress Eyes Conjunctivae: conjunctivae normal Resp Auscultation: clear to auscultation bilaterally Cardio Rate: regular rate Rhythm: regular rhythm GI Inspection: Yes normal to inspection Extrem Other: Left hand pulse is strong, no paralysis tender on the left lateral epicondylitis and tender on the left bicipital tendinitis area. Discussed about physical therapy General: Yes normal to inspection and No edema Assessment and Plan Assessment & Plan (1) Blood pressure elevated without history of HTN: Code(s): R03.0 - Elevated blood-pressure reading, without diagnosis of hypertension Plan: Resolved blood pressure presently is normal (2) Hx of fusion of cervical spine: Code(s): Z98.1 - Arthrodesis status Plan: X-ray of the cervical spine requested (3) Positive colorectal cancer screening using Cologuard test: Comment: 2020 Code(s): R19.5 - Other fecal abnormalities Plan: Reminded about colonoscopy (4) Tobacco abuse: Code(s): Z72.0 - Tobacco use Plan: Patient is strongly advised to stop smoking! (5) Obesity: Code(s): E66.9 - Obesity, unspecified Plan: Diet and exercise (6) Lateral epicondylitis of left elbow: Code(s): M77.12 - Lateral epicondylitis, left elbow Plan: Patient is sent for physical therapy (7) Bicipital tendonitis of left shoulder: Code(s): M75.22 - Bicipital tendinitis, left shoulder Plan: Patient is sent for physical therapy Orders: Orders XR cervical spine 2V Today Z98.1 - Arthrodesis status PT Evaluation and Treatment Today M75.22 - Bicipital tendinitis, left shoulder, M77.12 - Lateral epicondylitis, left elbow Coding Level of Care Code Est Pt Level 4 (81750) Diagnoses Blood pressure elevated without history of HTN R03.0 Hx of fusion of cervical spine Z98.1 Positive colorectal cancer screening using Cologuard test R19.5 Tobacco abuse Z72.0 Obesity E66.9 Lateral epicondylitis of left elbow M77.12 Bicipital tendonitis of left shoulder M75.22
[2023-12-17 16:59] VITALS: BP 120/70; PULSE 87; O2SAT 97; BMI 42.3
== END 2023-12-17 18:33 | disposition home or self-care (01) ==
PROVIDERS: PCP Internal Medicine; Visit Provider Internal Medicine
DX: M54.2 Cervicalgia (principal); Z98.1 Arthrodesis status; R19.5 Other fecal abnormalities; F17.210 Nicotine dependence, cigarettes, uncomplicated; M77.12 Lateral epicondylitis, left elbow; M75.22 Bicipital tendinitis, left shoulder
CPT/HCPCS: 99214

== ENCOUNTER 2023-12-27 03:10 | Emergency (ER) | payer MEDICARE, MEDICAID, SELFPAY ==
--- NOTE | 2023-12-27 | ECG_ITS ---
Test Reason : HIGH HR Blood Pressure : / mmHG Vent. Rate : 125 BPM Atrial Rate : 125 BPM P-R Int : 142 ms QRS Dur : 084 ms QT Int : 314 ms P-R-T Axes : 076 008 055 degrees QTc Int : 453 ms Sinus tachycardia Cannot rule out Inferior infarct , age undetermined Abnormal ECG When compared with ECG of 14-DEC-2017 11:40, No significant change was found Referred By: Generic ED Physician Electronically Signed By:CUCA FERRELL MD
--- NOTE | ~2023-12-27 | XR_ITS ---
EXAMINATION: XR CHEST CLINICAL INFORMATION: Shortness of breath. COMPARISON: 06/29/2023. TECHNIQUE: 2 views of the chest were obtained. FINDINGS: The cardiomediastinal silhouette is normal. There is no focal consolidation or pleural effusion. The bony structures and soft tissues are unremarkable. XR/XR chest 2V IMPRESSION: No acute cardiopulmonary process.
[2023-12-27 03:13] VITALS: BP 154/86; PULSE 126; RESP 21; TEMP 36.7; O2SAT 94; BMI 43.8
[2023-12-27 03:59] LABS: MANUAL DIFF FLAG NO
[2023-12-27 04:00] LABS: Basophils Absolute Auto 0.1 X10*3/uL (0.0-0.2); Basophils Percent Auto 0.5 % (0-2); Eosinophils Absolute Auto 0.1 X10*3/uL (0.0-0.4); Eosinophils Percent Auto 0.7 % (0-4); Hematocrit 42.4 % (37.0-47.0); Hemoglobin 14.4 g/dl (12.0-16.0); Imm Gran Pct Auto 0.9 % (0.0-0.4); Lymphocytes Absolute Auto 0.7 X10*3/uL (1.2-4.9); Lymphocytes Percent Auto 5.8 % (20-40); Mean Corpuscular Hemoglobin 28.6 pg (27.0-33.0); Mean Corpuscular Volume 84.1 fL (80.0-98.0); Mean Platelet Volume 10.5 fL (9.4-12.3); Monocytes Absolute Auto 0.8 X10*3/uL (0.1-1.2); Monocytes Percent Auto 6.7 % (2-11); Neutrophils Absolute Auto 9.8 x10*3/uL (2.0-8.3); Neutrophils Percent Auto 85.4 % (45-73); Platelet Count 281 X10*3/uL (160-400); Red Blood Count 5.04 X10*6/uL (4.20-5.50); Red Cell Distribution Width 13.3 % (11.0-16.0); White Blood Count 11.4 X10*3/uL (4.8-10.8)
--- NOTE | 2023-12-27 04:00 | MHC.EDTECH ---
EKG,LABS ARE DONE PT EXPRESSES NO OTHER NEEDS AT THIS TIME . CALL LIGHT WITHIN REACH PLAN OF CARE IS ONGOING
[2023-12-27 04:06] VITALS: BP 158/87; PULSE 118; RESP 16; TEMP 38.2; O2SAT 93
[2023-12-27 04:18] LABS: Alanine Aminotransferase 14 U/L (0-31); Albumin Level 4.3 g/dL (3.5-5.0); Alkaline Phosphatase 98 U/L (39-117); Anion Gap 15 (12-20); Aspartate Amino Transferase 16 U/L (5-31); Bilirubin Total 0.4 mg/dL (0.0-1.0); Blood Urea Nitrogen 8 mg/dL (9-16); Calcium 9.5 mg/dL (8.4-10.2); Carbon Dioxide 24 mmol/L (22-29); Chloride 105 mmol/L (96-108); Creatinine Clr Calc Pharmacy 86.2; Estimated Glomerular Filt Rate > 60; Glucose Random 134 mg/dL (60-115); Potassium 3.7 mmol/L (3.3-5.1); Sodium 140 mmol/L (135-145)
[2023-12-27 04:37] LABS: Influenza A PCR POSITIVE (Negative); Influenza B PCR NEGATIVE (Negative); Resp Syncy Virus RNA Qual PCR NEGATIVE (Negative); SARS COV2 PCR INHOUSE NEGATIVE (Negative)
--- NOTE | 2023-12-27 05:19 | ED_ITS ---
HPI - SOB/Dyspnea General Chief Complaint: Dyspnea Stated Complaint: Sob Time Seen by Provider: 12/27/23 05:18 Source: patient Mode of arrival: ambulatory Limitations: no limitations History of Present Illness HPI Narrative: Patient chronic smoker with history of recurrent bronchitis was visiting her mother who was admitted at [facility] since earlier today noticed increased cough and fever and chills with shortness of breath saturating 92% on room air on arrival she was febrile 102.7 with heart rate in 120s wheezing Related Data Home Medications Medication Instructions Recorded Confirmed cholecalciferol (vitamin D3) 50 50 mcg PO DAILY 10/28/20 02/12/23 mcg (2,000 unit) capsule olyewmyc-jymy-pjnj 8 mg-folic 400 1 tab PO DAILY 10/28/20 02/12/23 mcg-K 50 mcg-lutein 300 mcg tablet (Centrum Silver Women) Previous Rx's Medication Instructions Recorded cyanocobalamin (vitamin B-12) 1,000 mcg PO DAILY #30 caps 10/28/20 1,000 mcg capsule folic acid 1 mg tablet 1 mg PO DAILY 90 days #90 tabs 08/12/21 albuterol sulfate 90 mcg/actuation 2 puff inhalation Q6H PRN 02/12/23 aerosol inhaler (Ventolin HFA) shortness of breath or wheezing #8.5 grams atorvastatin 10 mg tablet 10 mg PO DAILY #90 tabs 02/12/23 blood pressure monitor (Blood #1 ea 02/12/23 Pressure Kit) rcydlput-rtpnnrvys-wnfxxldok 3.5 4 drp otic (ears) Q8H 10 days #10 05/03/23 mg-10,000 unit/mL-1 % ear mL drops,susp nabumetone 500 mg tablet 500 mg PO BID #20 tabs 12/10/23 albuterol sulfate 90 mcg/actuation 2 puff inhalation Q4-6H PRN 12/27/23 aerosol inhaler (ProAir HFA) shortness of breath or wheezing #8.5 grams codeine 10 mg-guaifenesin 100 mg/5 10 ml PO Q6H PRN cough #237 mL 12/27/23 mL oral liquid oseltamivir 75 mg capsule (Tamiflu) 75 mg PO BID 5 days #10 caps 12/27/23 Allergies Allergy/AdvReac Type Severity Reaction Status Date / Time amoxicillin [Amoxicillin] Allergy Mild HIVES/SHAKING, Verified 12/27/23 03:12 hives, hives azithromycin [From Zithromax] Allergy Mild NAUSEA Verified 12/27/23 03:12 doxycycline [Doxycycline] Allergy Mild VOMITING Verified 12/27/23 03:12 Review of Systems 2 Review of Systems: Yes all other systems are reviewed and are negative [facility] Past Medical History Medical History Mass of breast, left Hiatal hernia Tobacco abuse Anxiety and depression Migraine GERD (gastroesophageal reflux disease) Degenerative disc disease, cervical Vitamin D deficiency Carpal tunnel syndrome Osteoarthritis of knees, bilateral Hypercholesterolemia Obesity Surgical History History of knee surgery History of tonsillectomy History of cervical discectomy History of D&C H/O arthroscopic knee surgery Family History Family History Father Myocardial infarction Mother Myocardial infarction Carotid stenosis Cancer of anterior aspect of epiglottis Maternal Grandmother Stomach cancer Maternal Aunt Stomach cancer Breast cancer Maternal Uncle Cardiac arrest Social History Social History Housing: House Alcohol intake: current Alcohol intake frequency: holidays/special occasions only Patient Tobacco Use Status: Current everyday Tobacco user Tobacco use type: Cigarette Cigarettes Per Day: 10 e-Cigarette/Vaping Use: Never Used Second Hand Smoke Exposure: Yes Advance Directives: Yes Advance Directives on File: Yes Advance Directives Date on File: 08/14/22 service: No Current occupational status: disabled Current occupation: rt hand Cognitive needs: No Hearing needs: No Vision needs: Yes Physical Exam 2 Vital Signs: Vital Signs: Last Vital Signs Temp 98.9 F 12/27/23 07:37 Pulse 127 H 12/27/23 07:37 Resp 20 12/27/23 07:37 BP 133/56 L 12/27/23 07:37 Pulse Ox 94 12/27/23 07:37 O2 Del Method Room Air 12/27/23 07:37 BMI result Body Mass Index 43.8 Appearance: Alert. Oriented X3. Coughing, Febrile temperature 102.7 degrees Eyes: No pallor or icterus ENT: Pharynx normal. Oral Mucosa moist Neck: Normal inspection. Neck supple. CVS: Tachycardic regular rhythm. Pulses normal. Respiratory: Moderate respiratory distress. Equal air entry bilateral, bilateral wheezing Abdomen: Soft and nontender. Bowel sounds are present, no mass palpable, no CVA tenderness Skin: Skin warm and dry. Normal skin color. Normal skin turgor. Extremities: No lower extremity edema. No calf tenderness Neuro: Oriented X 3. No motor deficit. Medications Administered Discontinued Medications Generic Name Dose Route Start Last Admin Trade Name Arashq PRN Reason Stop Dose Admin Acetaminophen 975 mg 12/27/23 05:30 12/27/23 05:57 Acetaminophen 325 Mg Tablet PO 12/27/23 05:31 975 mg ONCE ONE Administration Albuterol Sulfate 5 mg/ 0 mg 12/27/23 05:30 12/27/23 05:56 Albuterol/Ipratropium 3 ml INHALE 12/27/23 05:31 2.5 each ONCE ONE Administration Guaifenesin/Codeine Phosphate 10 ml 12/27/23 05:21 12/27/23 05:46 Guaifen/Codeine Sf 200/20/10ml 10 Ml Liquid PO 12/27/23 05:22 10 ml ONCE ONE Administration Sodium Chloride 1,000 mls @ 999 mls/hr 12/27/23 05:30 12/27/23 05:53 Ns IV 12/27/23 06:30 999 mls/hr .Q1H1M ONE Administration Ibuprofen 800 mg 12/27/23 05:30 12/27/23 05:53 Ibuprofen 800 Mg Tablet PO 12/27/23 05:31 Not Given ONCE ONE Levalbuterol HCl 2.5 mg 12/27/23 06:04 12/27/23 06:14 Levalbuterol Hcl 1.25 Mg/3 Ml Vial.Neb INHALE 12/27/23 06:05 2.5 mg ONCE ONE Administration Methylprednisolone Sodium Succinate 125 mg 12/27/23 06:05 12/27/23 06:56 Methylprednisolone Sod Succ 125 Mg/2 Ml Vial IVPUSH 12/27/23 06:06 125 mg ONCE ONE Administration Oseltamivir Phosphate 75 mg 12/27/23 05:21 12/27/23 05:46 Oseltamivir Phosphate 75 Mg Capsule PO 12/27/23 05:22 75 mg ONCE ONE Administration Medical Decision Making Medical Decision Making MDM Narrative: Patient's influenza a with wheezing and fever tachycardic not received her flu vaccine chest x-ray negative for infiltrate responded to IV fluids and supportive treatment will watch for some time she is still tachycardic will give oxygen because she is tachypneic Differential Diagnosis Differential Diagnoses: The differential diagnosis associated with the presentation includes Viral fever/pneumonia/CHF Admission/Observation Consideration of admission/observation: Escalation of care including admission/observation considered Lab Data MDM Lab Attestation statement: I reviewed the patient's lab results. 12/27/23 03:54 12/27/23 03:54 Labs: Lab Results 12/27/23 Range/Units 03:54 WBC 11.4 H (4.8-10.8) X10*3/uL RBC 5.04 (4.20-5.50) X10*6/uL Hgb 14.4 (12.0-16.0) g/dl Hct 42.4 (37.0-47.0) % MCV 84.1 (80.0-98.0) fL MCH 28.6 (27.0-33.0) pg MCHC 34.0 (31.0-35.0) g/dl RDW 13.3 (11.0-16.0) % Plt Count 281 (160-400) X10*3/uL MPV 10.5 (9.4-12.3) fL Immature Gran % (Auto) 0.9 H (0.0-0.4) % Neut % (Auto) 85.4 H (45-73) % Lymph % (Auto) 5.8 L (20-40) % [place] % (Auto) 6.7 (2-11) % Eos % (Auto) 0.7 (0-4) % Baso % (Auto) 0.5 (0-2) % Lymph # (Auto) 0.7 L (1.2-4.9) X10*3/uL [place] # (Auto) 0.8 (0.1-1.2) X10*3/uL Eos # (Auto) 0.1 (0.0-0.4) X10*3/uL Baso # (Auto) 0.1 (0.0-0.2) X10*3/uL Abs Immat Gran (auto) 0.10 H (0.00-0.03) X10*3/uL Absolute Neuts (auto) 9.8 H (2.0-8.3) x10*3/uL Absolute Nucleated RBC 0.000 (0.0-0.012) X10*3/uL Nucleated RBC % (auto) 0.0 (0.0-0.2) /100WBC Sodium 140 (135-145) mmol/L Potassium 3.7 (3.3-5.1) mmol/L Chloride 105 (96-108) mmol/L Carbon Dioxide 24 (22-29) mmol/L Anion Gap 15 (12-20) BUN 8 L (9-16) mg/dL Creatinine 0.81 (0.5-1.4) mg/dL Estim Creat Clear Calc 86.2 Estimated GFR > 60 Random Glucose 134 H (60-115) mg/dL Calcium 9.5 (8.4-10.2) mg/dL Total Bilirubin 0.4 (0.0-1.0) mg/dL AST 16 (5-31) U/L ALT 14 (0-31) U/L Alkaline Phosphatase 98 (39-117) U/L Total Protein 7.0 (6.5-8.0) g/dL Albumin 4.3 (3.5-5.0) g/dL Influenza Type A (PCR) POSITIVE A (Negative) Influenza Type B (PCR) NEGATIVE (Negative) RSV RNA Qual (PCR) NEGATIVE (Negative) SARS-CoV-2 RNA (RT-PCR) NEGATIVE (Negative) Independent Interpretation I performed an independent interpretation of an: EKG and Plain X-Ray Interpretation: Sinus tachycardia with heart rate 125 beats per minute normal interval normal axis no acute ST T wave changes Radiology Impression Discussion of test interpretation with radiology: I have reviewed the radiologist's reading. Discharge Plan Discharge Clinical Impression: Acute bronchitis due to Haemophilus influenzae Patient Disposition: Still a Patient Instructions: Influenza (DC), Acute Bronchitis (ED) Additional Instructions: Drink plenty of fluid Take Tamiflu and cough drops as prescribed Use albuterol inhaler 2 puffs every 4-6 hours Report to the ER if not better Take Tylenol/Motrin for fever Prescriptions: New oseltamivir [Tamiflu] 75 mg capsule 75 mg PO BID 5 Days Qty: 10 0RF codeine-guaifenesin 10-100 mg/5 mL liquid 10 ml PO Q6H PRN (Reason: cough) Qty: 237 0RF albuterol sulfate [ProAir HFA] 90 mcg/actuation HFA aerosol inhaler 2 puff inhalation Q4-6H PRN (Reason: shortness of breath or wheezing) Qty: 8.5 0RF No Action albuterol sulfate [Ventolin HFA] 90 mcg/actuation HFA aerosol inhaler 2 puff inhalation Q6H PRN (Reason: shortness of breath or wheezing) Qty: 8.5 0RF spturxwr-ilcdlbcam-WD 3.5-10,000-1 mg/mL-unit/mL-% drops,suspension 4 drp otic (ears) Q8H 10 Days Qty: 10 0RF nabumetone 500 mg tablet 500 mg PO BID Qty: 20 0RF Centrum Silver Women 8 mg iron-400 mcg-300 mcg tablet 1 tab PO DAILY cholecalciferol (vitamin D3) 50 mcg (2,000 unit) capsule 50 mcg PO DAILY cyanocobalamin (vitamin B-12) 1,000 mcg capsule 1,000 mcg PO DAILY Qty: 30 3RF folic acid 1 mg tablet 1 mg PO DAILY 90 Days Qty: 90 3RF atorvastatin 10 mg tablet 10 mg PO DAILY Qty: 90 2RF (DME) blood pressure monitor [Blood Pressure Kit] Kit See Rx Instructions .ROUTE .MEDSUPPLY Qty: 1 0RF Rx Instructions: As directed
[2023-12-27] MEDS: Oseltamivir Phosphate 75 MG CAPSULE PO (05:46)
[2023-12-27] MEDS: guaiFEN/Codeine SF 200/20/10ML 10 ML LIQUID PO (05:46)
[2023-12-27] MEDS: 0.9 % Sodium Chloride 1,000 ML 999 ML IV ×2 (05:53→08:05)
[2023-12-27] MEDS: Albuterol Sulfate 5 MG, Albuterol/Iprat 2.5/0.5MG 3 ML 3 ML INHALE (05:56)
[2023-12-27 05:57] VITALS: PULSE 120; RESP 24; O2SAT 93
[2023-12-27] MEDS: Acetaminophen 325 MG TABLET 975 MG PO (05:57)
[2023-12-27 06:04] VITALS: BP 182/78; PULSE 144; RESP 21; TEMP 37.8; O2SAT 92
[2023-12-27] MEDS: levalbuterol HCL 1.25 MG/3 ML VIAL.NEB 2.5 MG INHALE (06:14)
[2023-12-27 06:17] VITALS: PULSE 137; RESP 16; O2SAT 92
[2023-12-27] MEDS: methylPREDNISolone Sod Succ 125 MG/2 ML VIAL IVPUSH (06:56)
[2023-12-27 07:37] VITALS: BP 133/56; PULSE 127; RESP 20; TEMP 37.2; O2SAT 94
--- NOTE | 2023-12-27 08:05 | PC.NURSE ---
patient a&ox3, monitor and storage bin tender sinus tach 120s, vitals otherwise stable, lungs diminished/clear, IVF started per order, call farah within reach, will continue to monitor
[2023-12-27 08:56] LABS: C Reactive Protein 1.79 mg/dL (< or = 0.50)
== END 2023-12-27 09:58 | disposition home or self-care (01) ==
PROVIDERS: Internal Medicine; Emergency Provider Emergency Medicine; PCP Internal Medicine
DX: J10.1 Influenza due to other identified influenza virus with other respiratory manifestations (principal); R06.02 Shortness of breath; R05.9 Cough, unspecified; R00.0 Tachycardia, unspecified; F17.210 Nicotine dependence, cigarettes, uncomplicated; Z11.52 Encounter for screening for COVID-19; Z20.822 Contact with and (suspected) exposure to COVID-19; Z79.899 Other long term (current) drug therapy
CPT/HCPCS: 0241U; 36415; 71046; 80053; 85025; 86140; 93005; 94640; 96361; 96374; 99284; 99285; J2930

== ENCOUNTER → 2023-12-27 03:27 | Outpatient (BNV) | payer MEDICARE, MEDICAID, SELFPAY | PROVIDERS: Emergency Provider Emergency Medicine; PCP Internal Medicine; Visit Provider Internal Medicine Cardiovascular Disease | DX: R00.0 Tachycardia, unspecified (principal) | CPT/HCPCS: 93010 ==

== ENCOUNTER 2024-02-28 14:00 | Outpatient (RCR) | payer MEDICARE, MEDICAID, SELFPAY ==
--- NOTE | 2024-02-06 14:47 | MHC.PT.EP ---
[facility] [place] Office [place] Office [place] Office [address] Dinesh Hernández [address] [phone] F: [phone] F: [phone] F: [phone] F: [phone] Physical Therapy Plan of Care Date of Evaluation: 02/06/24 Date of Surgery: n/a Diagnosis: bicipital tendonitis, L shoulder Assessment: Patient is a 53 year old female presenting to PT with complaints of pain in her L shoulder. Pt reports onset of pain began about 1 month ago due to insidious onset. She presents today with impairments in pain, numbness and tingling, posture, shoulder strength. Pt's current occupation is none, with baseline physical activities including ADLs, caring for granddaughters. Pt expresses joint terminal attack controller goal of reducing pain, and is motivated to work towards this in PT. Clinical presentation today is most consistent with signs and sx associated with L shoulder pain with possible contribution from the neck and pt will benefit from skilled PT 2 week x 4 weeks to address the following problems and impairments noted upon evaluation: pain, numbness and tingling, posture, shoulder strength. These problems limit the patient with the following functional activities: ADLs, caring for granddaughters. The prescribed treatment plan of care is medically necessary. Co-morbidities of neck surgery fusion 2011 C5/6, c6/7, neck surgery fusion 2017 c4/5 were identified and taken into considerations of plan of care. Pt was educated on HEP, role of PT, prognosis, POC. Frequency and Duration: The patient will be seen 2 x week x 4 weeks Short Term Goals: Pt will demonstrate centralization of sx in 2 weeks. Pt will demonstrate ability to perform exercises without cues for posture in 2 weeks. Pt will demonstrate 5/5 L shoulder strength in 2 weeks. Nursing Home Goals: Pt will demonstrate improved SPADI score by 13 points in 4 weeks for improved functional mobility. Pt will demonstrate ability to complete ADLs with min to no pain in 4 weeks for return to PLOF. Treatment Plan: Modalities to reduce pain, spasms and effusion. Manual therapy to restore motion and function. Therapeutic exercise to improve strength and flexibility. Neuromuscular re-education for posture and balance. Therapeutic activities to return to functional activities of daily living. Electronically signed by: Annemarie Doran, PT, DPT, ATC Please sign and return to therapist. Thank you for your referral.
--- NOTE | 2024-04-11 12:17 | MHC.PT.DC ---
[facility] [place] [facility] [place] [facility] [place] [facility] [address] [phone] F: [phone] F: [phone] F: [phone] F: [phone] Physical Therapy Discharge Report Diagnosis: bicipital tendonitis, L shoulder Date of Surgery: n/a Date of Evaluation: 02/06/24 Date of Discharge: 04/11/24 Treatments to Date: 6 Cancellations to Date: 2 No Shows to Date: 1 Discharge Status: Discharge Summary: Pt has not attended skilled PT in >30 days and therefore to be d/c. Electronically signed by: Annemarie Doran, PT, DPT, ATC Please sign and return to therapist. Thank you for your referral.
== END 2024-04-11 12:17 | disposition home or self-care (01) ==
LOC: HO.PTCHIC 14:00
PROVIDERS: PCP Internal Medicine; Visit Provider Internal Medicine
DX: M75.22 Bicipital tendinitis, left shoulder (principal); M77.12 Lateral epicondylitis, left elbow
CPT/HCPCS: 97110; 97140; 97161

== ENCOUNTER 2024-02-29 12:20 | Outpatient (AMB) | payer MEDICARE, MEDICAID, SELFPAY ==
[2024-02-29 12:31] VITALS: BP 148/90; PULSE 94; O2SAT 96; BMI 42.1
--- NOTE | 2024-02-29 12:31 | A.OFFPC_ITS ---
Vital Signs 02/29/24 12:31 Height 5 ft 2 in Weight 230 lb 0.4 oz BMI 42.1 BP 148/90 H Blood Pressure Location Lt brachial Position Sitting Pulse 94 Pulse Source Pulse Oximeter Pulse Oximetry (%) 96 Oxygen Delivery Method Room Air Intake Visit Reasons: MRI Request Half Sole Fitter Required: No Allergies amoxicillin [Amoxicillin] Allergy (Mild, Verified 02/29/24 12:35) HIVES/SHAKING, hives, hives azithromycin [From Zithromax] Allergy (Mild, Verified 02/29/24 12:35) NAUSEA doxycycline [Doxycycline] Allergy (Mild, Verified 02/29/24 12:35) VOMITING Tobacco use date assessed: 02/29/24 Dental Screening Dental Screen Date: 12/17/23 HPI MRI Request HPI Details 53-year-old morbidly obese female smoker with a history of cervical spine surgery, COPD coming in for follow-up. Last seen in December 2023. Noted in January ER visit for COPD exacerbation and influenza a steroid given plus Tamiflu. Also the last time was having some left shoulder pain and what sent for physical therapy complains of limited elevation of the left arm with pain radiating to the shoulder to the elbow with numbness on the ulnar nerve distribution. Physical therapy has not provided relief. PAtient has cholestererol problem and still has not done blood work. STOPPED SMOKING 12/2023 [facility] Medical History Mass of breast, left Hiatal hernia Tobacco abuse Anxiety and depression Migraine GERD (gastroesophageal reflux disease) Degenerative disc disease, cervical Vitamin D deficiency Carpal tunnel syndrome Osteoarthritis of knees, bilateral Hypercholesterolemia Obesity Surgical History History of knee surgery History of tonsillectomy History of cervical discectomy History of D&C H/O arthroscopic knee surgery Family History Father Myocardial infarction Mother Myocardial infarction Carotid stenosis Cancer of anterior aspect of epiglottis Maternal Grandmother Stomach cancer Maternal Aunt Stomach cancer Breast cancer Maternal Uncle Cardiac arrest Social History Housing: House Alcohol intake: current Alcohol intake frequency: holidays/special occasions only Patient Tobacco Use Status: Current everyday Tobacco user Tobacco use type: Cigarette Cigarettes Per Day: 10 e-Cigarette/Vaping Use: Never Used Second Hand Smoke Exposure: Yes Advance Directives Date on File: 08/14/22 service: No Current occupational status: disabled Current occupation: rt hand Cognitive needs: No Hearing needs: No Vision needs: Yes Questionnaire Thrive Questionnaire Date Thrive assessed: 12/17/23 AUDIT C Alcohol Use Questionnaire (AUDIT-C) 1. How often do you have a drink containing alcohol?: Never 3. How often do you have six or more drinks on one occasion?: Never Total Score: 0 NA-7 AMB Questionnaire NA-7 Date NA - 7 assessed: 12/17/23 Source: Developed by Drs. Rodney Ramires, Haley Mccracken, Joao Reddy and colleagues, with an educational hal from [employer]. Physical exam (Primary Care) Vital Signs: Last Vital Signs Pulse 94 02/29/24 12:31 BP 148/90 H 02/29/24 12:31 Pulse Ox 96 02/29/24 12:31 Oxygen Delivery Method Room Air 02/29/24 12:31 BMI result Body Mass Index 42.1 Tobacco/Smoking Status: Tobacco use Status Tobacco use date assessed 02/29/24 02/29/24 12:38 Patient Tobacco Use Status Current everyday Tobacco 02/29/24 12:38 Tobacco use type Cigarette 02/29/24 12:38 e-Cigarette/Vaping Use Never Used 02/29/24 12:38 Thrive Assessment: Date of Thrive Assessment Date Thrive assessed 12/17/23 02/29/24 12:38 Const General: alert; No acute distress Eyes Conjunctivae: conjunctivae normal Resp Auscultation: clear to auscultation bilaterally Cardio Rate: regular rate Rhythm: regular rhythm GI Inspection: Yes normal to inspection Neuro Other: Patient has limited elevation of the left arm to about 110 degrees and complains of some neuropathic problem on the left arm ulnar nerve distribution. Otherwise patient can shrug, no joey deficit with hands Extrem General: Yes normal to inspection and No edema Assessment and Plan Assessment & Plan (1) Obesity: Code(s): E66.9 - Obesity, unspecified Plan: Diet and exercise (2) COPD (chronic obstructive pulmonary disease): Code(s): J44.9 - Chronic obstructive pulmonary disease, unspecified Plan: Patient is strongly advised to stop smoking! Patient has the inhalers albuterol and has not been using this. (3) Tobacco abuse: Comment: Stopped smoking 12/2023 Code(s): Z72.0 - Tobacco use Plan: Congratulations! stopped smoking 12/2023 (4) Hx of fusion of cervical spine: Code(s): Z98.1 - Arthrodesis status Plan: MRI has been requested (5) Cervical radicular pain: Code(s): M54.12 - Radiculopathy, cervical region Plan: Cervical MRI has been requested. (6) Hypercholesterolemia: Code(s): E78.00 - Pure hypercholesterolemia, unspecified Plan: Avoid fried foods, chicken skin, eggs, butter margarine, pastries and meat. Be it pork or beef they have a lot of cholesterol on atorvastatin 10 mg once a day and blood work is requested Orders: Orders MR cervical spine wo con Today M54.12 - Radiculopathy, cervical region Complete Blood Count Auto Diff Today E78.00 - Pure hypercholesterolemia, unspecified Comprehensive Met. Panel Today E78.00 - Pure hypercholesterolemia, unspecified Thyroid Stimulating Hormone Today E78.00 - Pure hypercholesterolemia, unspecified Lipid Panel Today E78.00 - Pure hypercholesterolemia, unspecified Vitamin B12 and Folate Today E78.00 - Pure hypercholesterolemia, unspecified Free T4 (Free Thyroxine) Today E78.00 - Pure hypercholesterolemia, unspecified Vitamin D 25-OH Total Today E78.00 - Pure hypercholesterolemia, unspecified Coding Level of Care Code Est Pt Level 4 (23452) Diagnoses Obesity E66.9 COPD (chronic obstructive pulmonary disease) J44.9 Tobacco abuse Z72.0 Hx of fusion of cervical spine Z98.1 Cervical radicular pain M54.12 Hypercholesterolemia E78.00
== END 2024-02-29 12:57 | disposition home or self-care (01) ==
PROVIDERS: PCP Internal Medicine; Visit Provider Internal Medicine
DX: J44.9 Chronic obstructive pulmonary disease, unspecified (principal); F17.210 Nicotine dependence, cigarettes, uncomplicated; Z98.1 Arthrodesis status; M54.12 Radiculopathy, cervical region; E78.00 Pure hypercholesterolemia, unspecified
CPT/HCPCS: 99214

== ENCOUNTER 2024-07-21 13:52 | Outpatient (AMB) | payer MEDICARE, MEDICAID, SELFPAY ==
--- NOTE | 2024-07-21 13:57 | A.OFFPC_ITS ---
Vital Signs 07/21/24 13:59 Height 5 ft 2 in Weight 229 lb 4 oz BMI 41.9 BP 120/70 Blood Pressure Location Lt brachial Position Sitting Pulse 91 Pulse Source Pulse Oximeter Pulse Oximetry (%) 96 Oxygen Delivery Method Room Air Intake Visit Reasons: 3mth f/u Intake Note: Patient is here to follow up on COPD, Cervicalgia, Hypercholesterolemia. Pt decline flu shot today. Firer Kiln Required: No Warehouse Logistics Manager: Not Required per policy Accompanied by: Self / Same As Patient Allergies amoxicillin [Amoxicillin] Allergy (Mild, Verified 07/21/24 13:58) HIVES/SHAKING, hives, hives azithromycin [From Zithromax] Allergy (Mild, Verified 07/21/24 13:58) NAUSEA doxycycline [Doxycycline] Allergy (Mild, Verified 07/21/24 13:58) VOMITING Tobacco use date assessed: 07/21/24 Dental Screening Dental Screen Date: 12/17/23 HPI 3mth f/u HPI Details 53-year-old morbidly obese female smoker with COPD with a history of cervical spine fusion hypercholesterolemia last seen in February 2024. Patient is mammogram is due. Received MRI of the cervical spine done in March 2024 showing spondylitic changes and facet arthrosis. Postoperative changes C4-C7 fusion no findings of fracture or listhesis no suggestion of acute disc protrusion. Small disc bulge see 3-4 impression on the ventral cord. Channel L AP canal diameter at this level measuring 7 mm no cord signal changes no additional cord flattening varying degrees of relative chronic appearing foraminal narrowing as detailed above. No changes since 2019 , seen Dr. Godinez and was told non surgical.- Patient was advised pain management.awaiting schedule [facility] Medical History Mass of breast, left Hiatal hernia Tobacco abuse Anxiety and depression Migraine GERD (gastroesophageal reflux disease) Degenerative disc disease, cervical Vitamin D deficiency Carpal tunnel syndrome Osteoarthritis of knees, bilateral Hypercholesterolemia Obesity Surgical History History of knee surgery History of tonsillectomy History of cervical discectomy History of D&C H/O arthroscopic knee surgery Family History Father Myocardial infarction Mother Myocardial infarction Carotid stenosis Cancer of anterior aspect of epiglottis Maternal Grandmother Stomach cancer Maternal Aunt Stomach cancer Breast cancer Maternal Uncle Cardiac arrest Social History (Updated 07/21/24 @ 14:03 by SUNDAR Trevino) Housing: House Alcohol intake: current Alcohol intake frequency: holidays/special occasions only Patient Tobacco Use Status: Current everyday Tobacco user Tobacco use type: Cigarette Cigarette Packs Per Day: 0.5 Cigarettes Per Day: 4 e-Cigarette/Vaping Use: Never Used Second Hand Smoke Exposure: Yes Advance Directives Date on File: 08/14/22 service: No Current occupational status: disabled Current occupation: rt hand Cognitive needs: No Hearing needs: No Vision needs: Yes Questionnaire Thrive Questionnaire Date Thrive assessed: 12/17/23 Are you currently unemployed and looking for a job?: No AUDIT C Alcohol Use Questionnaire (AUDIT-C) 2. How many drinks containing alcohol do you have on a typical day when you are drinking?: 1 or 2 3. How often do you have six or more drinks on one occasion?: Less than monthly Total Score: 1 NA-7 AMB Questionnaire NA-7 Date NA - 7 assessed: 12/17/23 Source: Developed by Drs. Rodney Ramires, Haley Mccracken, Joao Reddy and colleagues, with an educational hal from [employer]. Physical exam (Primary Care) Vital Signs: Last Vital Signs Pulse 91 07/21/24 13:59 BP 120/70 07/21/24 13:59 Pulse Ox 96 07/21/24 13:59 Oxygen Delivery Method Room Air 07/21/24 13:59 BMI result Body Mass Index 41.9 Tobacco/Smoking Status: Tobacco use Status Tobacco use date assessed 07/21/24 07/21/24 14:02 Patient Tobacco Use Status Current everyday Tobacco 07/21/24 14:03 Tobacco use type Cigarette 07/21/24 14:03 e-Cigarette/Vaping Use Never Used 07/21/24 14:03 Thrive Assessment: Date of Thrive Assessment Date Thrive assessed 12/17/23 07/21/24 13:57 Const General: alert; No acute distress Eyes Conjunctivae: conjunctivae normal Resp Auscultation: clear to auscultation bilaterally Cardio Rate: regular rate Rhythm: regular rhythm GI Inspection: Yes normal to inspection Extrem General: Yes normal to inspection and No edema Immunizations Boostrix Tdap 2.5 Lf unit-8 mcg-5 Lf/0.5 mL intramuscular syringe Performing Provider: Jaden Barros MD Performing [facility] [place] [facility] Administered by: SUJIT Rossi on 07/21/24 14:48 Dose Route Admin Location Dispensed Lot Number Expiration Date NDC Judicial Administrative Assistant 0.5 mL IM Left Deltoid 0.5 mL [id number] 08/03/26 52915-205-12 [employer] VIS Given Date VIS Provided VIS Publication Date 07/21/24 Single Vaccine 21 Eligibility Eligibility Date Funding Source Not [facility] Eligible 07/21/24 Private Coding Level of Care Code Est Pt Level 4 (66938) Diagnoses Pulmonary emphysema, unspecified emphysema type J43.9 COPD type: emphysema Emphysema type: unspecified Gastroesophageal reflux disease without esophagitis K21.9 Esophagitis presence: without esophagitis Degenerative disc disease, cervical M50.30 Hypercholesterolemia E78.00 Morbid obesity E66.01 Breast cancer screening by mammogram Z12.31 Colon cancer screening Z12.11 Generalized anxiety disorder F41.1 Assessment & Plan Assessment & Plan (1) COPD (chronic obstructive pulmonary disease): Code(s): J44.9 - Chronic obstructive pulmonary disease, unspecified Category: Medical Qualifiers: COPD type: emphysema Emphysema type: unspecified Qualified Code(s): J43.9 - Emphysema, unspecified Plan: Continue with albuterol inhaler as needed (2) GERD (gastroesophageal reflux disease): Code(s): K21.9 - Gastro-esophageal reflux disease without esophagitis Category: Medical Qualifiers: Esophagitis presence: without esophagitis Qualified Code(s): K21.9 - Gastro-esophageal reflux disease without esophagitis Plan: Avoid the foods that causes that usually spicy foods, tomato products, juices, coffee, soda and foods that your sensitive to. After eating do not lie down, allow 3-4 hours before in lie down. And keep the head of bed above 30 degrees to avoid the acid from going up. (3) Degenerative disc disease, cervical: Comment: C5-C6, C6-C7, ACDF October 2011 Dr. Godinez neck surgery C5-C7 MRI March 2024 Code(s): M50.30 - Other cervical disc degeneration, unspecified cervical region Category: Medical Plan: Received MRI results. will see PAin management (4) Hypercholesterolemia: Code(s): E78.00 - Pure hypercholesterolemia, unspecified Category: Medical Plan: Avoid fried foods, chicken skin, eggs, butter margarine, pastries and meat. Be it pork or beef they have a lot of cholesterol December 2023 last blood work (5) Morbid obesity: Code(s): E66.01 - Morbid (severe) obesity due to excess calories Category: Medical Plan: Diet and exercise (6) Breast cancer screening by mammogram: Code(s): Z12.31 - Encounter for screening mammogram for malignant neoplasm of breast Category: Medical Plan: Reminded about mammogram (7) Colon cancer screening: Code(s): Z12.11 - Encounter for screening for malignant neoplasm of colon Category: Medical Plan: Reminded about colon cancer screening (8) Generalized anxiety disorder: Code(s): F41.1 - Generalized anxiety disorder Category: Medical Plan: decline med Orders: Orders MM tomosynthesis screening BI Today Z12.31 - Encounter for screening mammogram for malignant neoplasm of breast TDaP Immunization Today Z23 - Encounter for immunization Referrals Gastroenterology Referral Z12.11 - Encounter for screening for malignant neoplasm of colon Medications: Refilled atorvastatin 10 mg PO DAILY 90 tabs 2RF E78.00 - Pure hypercholesterolemia, unspecified
[2024-07-21 13:59] VITALS: BP 120/70; PULSE 91; O2SAT 96; BMI 41.9
== END 2024-07-21 14:53 | disposition home or self-care (01) ==
PROVIDERS: PCP Internal Medicine; Visit Provider Internal Medicine
DX: J43.9 Emphysema, unspecified (principal); E66.813 Obesity, class 3; Z68.41 Body mass index [BMI] 40.0-44.9, adult; K21.9 Gastro-esophageal reflux disease without esophagitis; M50.30 Other cervical disc degeneration, unspecified cervical region; E78.00 Pure hypercholesterolemia, unspecified; Z12.31 Encounter for screening mammogram for malignant neoplasm of breast; Z12.11 Encounter for screening for malignant neoplasm of colon; F41.1 Generalized anxiety disorder; Z23 Encounter for immunization

== ENCOUNTER → 2024-07-21 13:52 | Outpatient (BNVA) | payer MEDICARE, MEDICAID, SELFPAY | PROVIDERS: PCP Internal Medicine; Visit Provider Internal Medicine | DX: Z23 Encounter for immunization (principal); J43.9 Emphysema, unspecified; K21.9 Gastro-esophageal reflux disease without esophagitis; M50.30 Other cervical disc degeneration, unspecified cervical region; E78.00 Pure hypercholesterolemia, unspecified; E66.01 Morbid (severe) obesity due to excess calories; F41.1 Generalized anxiety disorder | CPT/HCPCS: 90471; 90715; 99212 ==

== ENCOUNTER 2025-02-19 08:25 | Outpatient (AMB) | payer MEDICARE, MEDICAID, SELFPAY ==
--- NOTE | 2025-02-19 08:46 | MHC.OFFWIV ---
Intake Vital Signs 02/19/25 08:48 Weight 227 lb BP 132/90 H Blood Pressure Location Lt brachial Position Sitting Pulse 112 H Pulse Source Pulse Oximeter Temp 98.5 F Temp Source Oral Pulse Oximetry (%) 97 Oxygen Delivery Method Room Air Intake Visit Reasons: EP-sob, cough Intake Note: Patient here for SOB,cough, slight nasal congestion and sneezing that started Sunday Patient Tobacco Use Status: Current everyday Tobacco user Allergies amoxicillin [Amoxicillin] Allergy (Mild, Verified 02/19/25 08:49) HIVES/SHAKING, hives, hives Do you need a note to return to daycare/school/sports/work: No HPI HPI Comments History of Present Illness Details 54 y/o Female patient who presents to the walk in clinic with c/o SOB, cough, slight nasal congestion and sneezing that started Sunday. She is a chronic cigarette smoker. [facility] Medical History (Updated 02/19/25 @ 19:35 by Aleena Lim NP) Wheezing on auscultation Cough Mass of breast, left Hiatal hernia Tobacco abuse Anxiety and depression Migraine GERD (gastroesophageal reflux disease) Degenerative disc disease, cervical Vitamin D deficiency Carpal tunnel syndrome Osteoarthritis of knees, bilateral Hypercholesterolemia Obesity Surgical History History of knee surgery History of tonsillectomy History of cervical discectomy History of D&C H/O arthroscopic knee surgery Family History Father Myocardial infarction Mother Myocardial infarction Carotid stenosis Cancer of anterior aspect of epiglottis Maternal Grandmother Stomach cancer Maternal Aunt Stomach cancer Breast cancer Maternal Uncle Cardiac arrest Social History (Updated 07/21/24 @ 14:03 by SUNDAR Trevino) Housing: House Alcohol intake: current Alcohol intake frequency: holidays/special occasions only Patient Tobacco Use Status: Current everyday Tobacco user Tobacco use type: Cigarette Cigarette Packs Per Day: 0.5 Cigarettes Per Day: 4 e-Cigarette/Vaping Use: Never Used Second Hand Smoke Exposure: Yes Advance Directives Date on File: 08/14/22 service: No Current occupational status: disabled Current occupation: rt hand Cognitive needs: No Hearing needs: No Vision needs: Yes Physical Exam Vital Signs: Last Vital Signs Temp 98.5 F 02/19/25 08:48 Pulse 112 H 02/19/25 08:48 BP 132/90 H 02/19/25 08:48 Pulse Ox 97 02/19/25 08:48 Oxygen Delivery Method Room Air 02/19/25 08:48 Const General: no acute distress Nutritional Appearance: obese Orientation/consciousness: patient oriented x3 HEENT Head: Yes normocephalic Ears: external ears normal and TM's normal bilaterally Face and sinus: Yes sinuses nontender Mouth: moist mucous membranes Resp Effort & Inspection: normal respiratory effort and Actively coughing Auscultation: no crackles, no rales, rhonchi and wheezes Cardio Rhythm: regular rhythm Heart sounds: S1 normal heart sound present and S2 normal heart sound present Neuro General: patient oriented x3 Office Procedures Nebulizer Treatment Nebulizer Treatment [id number] RX initial, or Nebulizer Subsequent Treatment Office Meds ipratropium 0.5 mg-albuterol 3 mg (2.5 mg base)/3 mL nebulization soln Performing Provider: Aleena Lim NP Performing Location: [facility] [place] [facility] Administered by: Aleena Lim NP on 02/19/25 09:52 Dose Route Admin Location Dispensed Lot Number Expiration Date [facility] Legal Research Analyst 3 mL inhalation 3 mL Assessment & Plan Assessment & Plan (1) Cough: Code(s): R05.9 - Cough, unspecified Qualifiers: Cough type: acute Qualified Code(s): R05.1 - Acute cough Plan: Ordered Z-pack Ordered Prednisone Ordered In office Neb Treatment. (2) Wheezing on auscultation: Code(s): R06.2 - Wheezing Plan: Ordered Z-pack Ordered Prednisone Ordered In office Neb Treatment. Orders: Orders AMB Nebulizer Treatment Today R05.9 - Cough, unspecified, R06.2 - Wheezing Medications: New azithromycin 500 mg PO DAILY 3 tabs 0RF 3 days R05.9 - Cough, unspecified, R06.2 - Wheezing prednisone 50 mg PO DAILY 5 tabs 0RF 5 days R05.9 - Cough, unspecified, R06.2 - Wheezing Coding Level of Care Code Est Pt Level 4 (33568) Diagnoses Acute cough R05.1 Cough type: acute Wheezing on auscultation R06.2 CPT Codes Nebulizer Treatment - Nebulizer Treatment, initial or subsequent: [id number] RX initial, or Nebulizer Subsequent Treatment ([id number]) Time Spent (min) 20
[2025-02-19 08:48] VITALS: BP 132/90; PULSE 112; TEMP 36.9; O2SAT 97
== END 2025-02-19 09:55 | disposition home or self-care (01) ==
PROVIDERS: PCP Internal Medicine; Visit Provider Nurse Practitioner Family
DX: R05.1 Acute cough (principal); R06.2 Wheezing; R05.9 Cough, unspecified

== ENCOUNTER → 2025-02-19 08:25 | Outpatient (BNVA) | payer MEDICARE, MEDICAID, SELFPAY | PROVIDERS: PCP Internal Medicine; Visit Provider Nurse Practitioner Family | DX: R05.1 Acute cough (principal); R06.2 Wheezing | CPT/HCPCS: 94640; 99212 ==

== ENCOUNTER 2025-06-23 13:27 | Outpatient (AMB) | payer MEDICARE, MEDICAID, SELFPAY ==
--- NOTE | 2025-06-23 13:39 | A.OFFPC_ITS ---
Vital Signs 06/23/25 13:40 Height 5 ft 2 in Weight 226 lb BMI 41.3 BP 124/82 Blood Pressure Location Lt brachial Position Sitting Pulse 88 Pulse Source Pulse Oximeter Temp 97.3 F Temp Source Temporal Artery Scan Pulse Oximetry (%) 96 Oxygen Delivery Method Room Air Intake Visit Reasons: annual exam Intake Note: Patient is here today for a physical. 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 Accompanied by: Self / Same As Patient Allergies amoxicillin (Amoxicillin) Allergy (Mild, Verified 06/23/25 13:40) HIVES/SHAKING, hives, hives Medication List - Last Reconciled 06/23/25 by Jaden Barros MD albuterol sulfate 90 mcg/actuation (Ventolin HFA) 2 puffs inhalation Q6H PRN atorvastatin 10 mg PO DAILY blood pressure monitor (Blood Pressure Kit) As directed cholecalciferol (vitamin D3) 50 mcg PO DAILY cyanocobalamin (vitamin B-12) 1,000 mcg PO DAILY folic acid 1 mg PO DAILY 90 days [id number] K-lut 8 mg iron-400 mcg-50 mcg (Centrum Silver Women) 1 tab PO DAILY Tobacco use date assessed: 06/23/25 Dental Screening Dental Screen Date: 06/23/25 Did you have a dental visit in the last 12 months?: No Did you have a dental problem in the last 6 months where you did not have access to dental care?: No Was dental information given to patient?: Patient has dentist HPI annual exam HPI Details still smoking onve i a while - yesterday 1/2 cigarette PFSH Medical History (Updated 06/23/25 @ 14:01 by Jaden Barros MD) Obesity Wheezing on auscultation Cough Mass of breast, left Hiatal hernia Tobacco abuse Anxiety and depression Migraine GERD (gastroesophageal reflux disease) Degenerative disc disease, cervical Vitamin D deficiency Carpal tunnel syndrome Osteoarthritis of knees, bilateral Hypercholesterolemia Surgical History History of knee surgery History of tonsillectomy History of cervical discectomy History of D&C H/O arthroscopic knee surgery Family History Father Myocardial infarction Mother Myocardial infarction Carotid stenosis Cancer of anterior aspect of epiglottis Maternal Grandmother Stomach cancer Maternal Aunt Stomach cancer Breast cancer Maternal Uncle Cardiac arrest Social History (Updated 06/23/25 @ 13:58 by Jaden Barros MD) Housing: House Alcohol intake: current Alcohol intake frequency: holidays/special occasions only Comment: holiday glassof wine Patient Tobacco Use Status: Current everyday Tobacco user Tobacco use type: Cigarette Cigarette Packs Per Day: 0.5 Cigarettes Per Day: 5 e-Cigarette/Vaping Use: Never Used Second Hand Smoke Exposure: Yes Advance Directives Date on File: 08/14/22 service: No Current occupational status: disabled Current occupation: rt hand Cognitive needs: No Hearing needs: No Vision needs: Yes Questionnaire PHQ-9 Over the last 2 weeks, how often have you been bothered by any of the following problems? 1. Little interest or pleasure in doing things: not at all 2. Feeling down, depressed, or hopeless: not at all 3. Trouble falling or staying asleep, or sleeping too much: not at all 4. Feeling tired or having little energy: not at all 5. Poor appetite or overeating: not at all 6. Feeling bad about yourself - or that you are a failure or have let yourself or your family down: not at all 7. Trouble concentrating on things, such as reading the newspaper or watching television: not at all 8. Moving or speaking so slowly that other people could have noticed. Or the opposite - being so fidgety or restless that you have been moving around a lot more than usual: not at all 9. Thoughts that you would be better off or of hurting yourself in some way: not at all Total score: 0 Depression Screening Interpretation: Negative Depression Screening Done: Yes Source: Developed by Drs. Rodney Ramires, Haley Mccracken, Joao Reddy and colleagues, with an educational hal from [employer]. Thrive Questionnaire Date Thrive assessed: 06/16/25 I am a: Patient What is your living situation today?: I have a steady place to live Within the past 12 months, did the food you bought not last and you didn't have the money to get more?: Never true Within the past 12 months, did you worry whether your food would run out before you got money to buy more?: Never true Do you have trouble paying for medicines?: No Do you have trouble getting transportation to medical appointments?: No Do you have trouble paying your heating and electricity bill?: No Do you have trouble taking care of your child, family member or friend?: No Do you have trouble with day-to-day activities such as bathing, preparing meals, shopping, managing finances, etc.?: No Are you currently unemployed and looking for a job?: No Are you interested in more education?: No THRIVE Score: 0 AUDIT C Alcohol Use Questionnaire (AUDIT-C) 1. How often do you have a drink containing alcohol?: Monthly or less 2. How many drinks containing alcohol do you have on a typical day when you are drinking?: 1 or 2 3. How often do you have six or more drinks on one occasion?: Never Total Score: 1 NA-7 AMB Questionnaire NA-7 Date NA - 7 assessed: 06/23/25 Feeling nervous, anxious, or on edge: 1 = Several days Not being able to stop or control worryin = Not at all Worrying too much about different things: 1 = Several days Trouble relaxin = Several days Being so restless that it is hard to sit still: 0 = Not at all Becoming easily annoyed or irritable: 1 = Several days Feeling afraid as if something awful might happen: 0 = Not at all Total NA-7 score (0-4 normal; 5-9 mild; 10-14 moderate; 15-21 severe): 4 Source: Developed by Drs. Rodney Ramires, Haley Mccracken, Joao Reddy and colleagues, with an educational hal from [employer]. Review of Systems Const Denies poor appetite and Denies weakness Eyes Denies no additional complaints ENT Reports Normal hearing present, Denies dizziness, Denies nasal congestion, Denies tinnitus and Denies sore throat Card Denies chest pain, Denies syncope, Denies rapid heart rate and Denies dyspnea Resp Denies cough and Denies dyspnea GI Denies change in stool character, Reports constipation, Denies diarrhea, Denies nausea and Denies vomiting Denies urinary frequency, Denies difficulty voiding and Denies dysuria Neuro Reports Normal hearing present, Denies confusion, Denies dizziness, Denies syncope and Denies weakness Psych Denies confusion Physical exam (Primary Care) Vital Signs: Last Vital Signs Temp 97.3 F 06/23/25 13:40 Pulse 88 06/23/25 13:40 BP 124/82 06/23/25 13:40 Pulse Ox 96 06/23/25 13:40 Oxygen Delivery Method Room Air 06/23/25 13:40 BMI result Body Mass Index 41.3 Tobacco/Smoking Status: Tobacco use Status Tobacco use date assessed 06/23/25 06/23/25 13:43 Patient Tobacco Use Status Current everyday Tobacco 06/23/25 13:58 Tobacco use type Cigarette 06/23/25 13:58 e-Cigarette/Vaping Use Never Used 06/23/25 13:58 PHQ-9: PHQ-9 Score PHQ-9: Total score 0 06/23/25 13:53 Depression Screening Interpretation: Negative Thrive Assessment: Date of Thrive Assessment Date Thrive assessed 06/16/25 06/23/25 13:43 Const General: No confusion Orientation/consciousness: No confusion HENMT Head: Yes normocephalic Ears: external ears normal and TM's normal bilaterally Face and sinus: Yes normal facial exam Mouth: moist mucous membranes Throat: Yes tonsils normal Eyes Conjunctivae: conjunctivae normal Pupils: Equal, round and reactive pupils present and Pupil accommodation reflex normal Direct Ophthalmoscopy: normal light reflex Neck Neck: No lymphadenopathy Thyroid: Thyroid normal Chest Chest palpation & inspection: normal inspection of the chest Resp Effort & Inspection: normal respiratory effort and no audible wheezes Auscultation: clear to auscultation bilaterally, no crackles, no wheezes and lung sounds not diminished Cardio Rate: regular rate Rhythm: regular rhythm Peripheral pulses: radial pulses present and dorsalis pedis present GI Palpation (GI): no masses Auscultation: normal bowel sounds and normoactive bowel sounds Rectal Exam - Female: deferred Skin General skin exam: no rashes or lesions noted Rashes: no rashes Neuro General: No confusion Cranial nerves: Yes Equal, round and reactive pupils present and Yes Normal hearing present Cognition (Neuro): normal cognition Gait exam (Neuro): Normal gait present Motor exam (neuro): 5/5 motor strength present throughout Deep tendon reflexes (DTR's): Right brachioradialis reflex intensity grade: 2+, Left brachioradialis reflex intensity grade: 2+, Right patellar reflex intensity grade: 2+ and Left patellar reflex intensity grade: 2+ Extrem General: No edema Coding Level of Care Code Est Pt Prev Care 40-64y(33977) Diagnoses Annual physical exam Z00.00 Morbid obesity E66.01 Elevated blood sugar R73.9 Hypercholesterolemia E78.00 Gastroesophageal reflux disease without esophagitis K21.9 Esophagitis presence: without esophagitis Colon cancer screening Z12.11 Breast cancer screening by mammogram Z12. Positive colorectal cancer screening using Cologuard test R19.5 Tobacco abuse Z72.0 Assessment & Plan Assessment & Plan (1) Annual physical exam: Code(s): Z00.00 - Encounter for general adult medical examination without abnormal findings Category: Medical Plan: Patient is advised to eat healthy, keep well hydrated, keep active and have adequate sleep. (2) Morbid obesity: Code(s): E66.01 - Morbid (severe) obesity due to excess calories Category: Medical Plan: Diet and exercise (3) Elevated blood sugar: Code(s): R73.9 - Hyperglycemia, unspecified Category: Medical Plan: Patient was advised to get blood work done (4) Hypercholesterolemia: Code(s): E78.00 - Pure hypercholesterolemia, unspecified Category: Medical Plan: Avoid fried foods, chicken skin, eggs, butter margarine, pastries and meat. Be it pork or beef they have a lot of cholesterol, on atorvastatin patient needs blood work (5) GERD (gastroesophageal reflux disease): Code(s): K21.9 - Gastro-esophageal reflux disease without esophagitis Category: Medical Qualifiers: Esophagitis presence: without esophagitis Qualified Code(s): K21.9 - Gastro-esophageal reflux disease without esophagitis Plan: Avoid the foods that causes that usually spicy foods, tomato products, juices, coffee, soda and foods that your sensitive to. After eating do not lie down, allow 3-4 hours before in lie down. And keep the head of bed above 30 degrees to avoid the acid from going up. (6) Colon cancer screening: Code(s): Z12.11 - Encounter for screening for malignant neoplasm of colon Category: Medical Plan: Patient is reminded about colonoscopy (7) Breast cancer screening by mammogram: Code(s): Z12.31 - Encounter for screening mammogram for malignant neoplasm of breast Category: Medical Plan: Patient is reminded about mammogram (8) Positive colorectal cancer screening using Cologuard test: Comment: 2020 Code(s): R19.5 - Other fecal abnormalities Category: Medical Plan: Colonoscopy reminded (9) Tobacco abuse: Comment: Stopped smoking 12/2023, hx of smoking > 20 pack years Code(s): Z72.0 - Tobacco use Category: Medical Plan History of Present Illness The patient is a 54-year-old female presenting for a physical examination and management of chronic conditions. The patient has a history of morbid obesity and hypercholesterolemia, with LDL cholesterol previously noted to be high at 151 mg/dL in 2021. She has been prescribed atorvastatin 10 mg for cholesterol management, which requires a refill. The patient has cervical degenerative disc disease and bilateral knee osteoarthritis, which cause discomfort during physical activity. She has been engaging in exercise, including joining a gym, to manage her weight and improve her physical health. The patient has a history of generalized anxiety disorder and is currently managing her symptoms without specific mention of medication. She has a history of Chronic Obstructive Pulmonary Disease (COPD) and was prescribed a Z-John and prednisone for a cough in February 2025. She reports not using her albuterol inhaler recently. The patient underwent a laminectomy with cervical spine fusion and reports no new surgeries since her last visit. In 2020, the patient had a positive Cologuard test, and she has been reminded to schedule a colonoscopy. She has not yet completed this due to personal responsibilities. The patient has an epidermal inclusion cyst, which was evaluated by dermatology. Her blood work from December of the previous year showed elevated blood sugar, and she has been advised to have follow-up blood work. Health Maintenance - Colonoscopy reminder due to positive Cologuard test in 2020 - Mammogram reminder - Blood work advised for cholesterol and blood sugar monitoring - Encouraged to maintain diet and exercise regimen - Discussion on shingles and pneumonia vaccinations Social History - Exercise: Joined a gym and is actively engaging in physical activity to manage weight and health. - Smoking: History of smoking, currently reducing intake, with a goal to quit. - Nutrition: Cutting out soda, increasing water intake, and consuming more salads and nuts. - Family: Caring for mother, sister, and granddaughter, impacting ability to complete health screenings. Review of Systems - General: Denies fever, chills, or weight loss. - Respiratory: Denies dyspnea on exertion, reports occasional cough. - Cardiovascular: Denies chest pain, palpitations, or syncope. - Gastrointestinal: Denies nausea, vomiting, diarrhea, or constipation. - Musculoskeletal: Reports knee discomfort with activity, denies joint swelling. - Neurological: Denies dizziness, headaches, or visual disturbances. Physical Exam General: Cooperative, healthy appearing, comfortable, no acute distress and well developed Orientation: Patient oriented x3 Limitations: No limitations Head: Normal to inspection Ears: Hearing grossly normal bilaterally, some earwax present but not obstructive Nose: Normal external nose present Face and sinus: Normal facial exam Eyes: Appearance normal, both eyes and all related structures Neck: Normal visual inspection and Yes full ROM, dizziness when turning neck certain ways Respiratory: Normal respiratory effort and able to speak in complete sentences. Clear to auscultation bilaterally Cardiovascular: Regular rate and rhythm. Normal S1 and S2 GI: Normal to inspection. Soft to palpation and nontender Skin: No rashes or lesions noted Neuro: Patient oriented x3 Extremities: Normal to inspection, bilateral knee osteoarthritis noted Results - Labs: Elevated blood sugar noted in previous blood work. - Tests: Positive Cologuard test in 2020. Plan Patient was informed and verbally consented to the use of an ambient scribe for clinic note documentation during this visit. 1. Morbid Obesity The patient is advised to continue with her current exercise regimen and dietary modifications to manage her weight. Regular follow-up appointments are recommended to monitor progress and adjust the plan as necessary. 2. Hypercholesterolemia The patient is currently on atorvastatin 10 mg for cholesterol management, which requires a refill. Follow-up blood work is advised to monitor cholesterol levels. 3. Cervical Degenerative Disc Disease The patient is encouraged to continue physical activity and stretching exercises to manage symptoms. 4. Bilateral Knee Osteoarthritis The patient is advised to continue with low-impact exercises to manage knee discomfort. 5. Generalized Anxiety Disorder The patient is managing her anxiety symptoms without specific mention of medication. 6. Chronic Obstructive Pulmonary Disease (Copd) The patient was previously prescribed a Z-Jhon and prednisone for a cough and reports not using her albuterol inhaler recently. Smoking cessation is strongly encouraged to improve respiratory health. 7. Status Post Laminectomy Syndrome With Cervical Spine Fusion The patient reports no new surgeries since her last visit and is advised to continue monitoring for any new symptoms. 8. Positive Cologuard Testing In 2020 The patient is reminded to schedule a colonoscopy due to the positive Cologuard test in 2020. 9. Epidermal Inclusion Cyst The cyst was evaluated by dermatology, and no further intervention is currently planned. 10. Elevated Blood Sugar The patient is advised to have follow-up blood work to monitor blood sugar levels. Discussion Notes During the visit, I discussed the importance of managing chronic conditions such as obesity, hypercholesterolemia, and COPD with the patient. We reviewed the need for regular follow-up appointments and the importance of lifestyle modifications, including diet and exercise. I emphasized the necessity of completing recommended screenings, such as a colonoscopy and mammogram, and discussed the potential benefits of vaccinations for shingles and pneumonia. Patient Instructions - Continue with exercise and dietary modifications to manage weight. - Schedule and complete a colonoscopy and mammogram as soon as possible. - Follow up with blood work to monitor cholesterol and blood sugar levels. - Consider vaccinations for shingles and pneumonia. - Continue efforts to quit smoking to improve respiratory health. Orders: Orders Hemoglobin A1c Today R73.9 - Hyperglycemia, unspecified Referrals Gastroenterology Referral R19.5 - Other fecal abnormalities Lung Cancer Screening Referral Z72.0 - Tobacco use
[2025-06-23 13:40] VITALS: BP 124/82; PULSE 88; TEMP 36.3; O2SAT 96; BMI 41.3
== END 2025-06-23 14:15 | disposition home or self-care (01) ==
LOC: HO.HMCH 13:27
PROVIDERS: PCP Internal Medicine; Visit Provider Internal Medicine
DX: Z00.00 Encounter for general adult medical examination without abnormal findings (principal); E66.01 Morbid (severe) obesity due to excess calories; Z68.41 Body mass index [BMI] 40.0-44.9, adult; R73.9 Hyperglycemia, unspecified; E78.00 Pure hypercholesterolemia, unspecified; K21.9 Gastro-esophageal reflux disease without esophagitis; Z12.11 Encounter for screening for malignant neoplasm of colon; Z12.31 Encounter for screening mammogram for malignant neoplasm of breast; R19.5 Other fecal abnormalities; Z72.0 Tobacco use

== ENCOUNTER → 2025-06-23 13:27 | Outpatient (BNVA) | payer MEDICARE, MEDICAID, SELFPAY | PROVIDERS: PCP Internal Medicine; Visit Provider Internal Medicine | DX: Z00.00 Encounter for general adult medical examination without abnormal findings (principal); E66.01 Morbid (severe) obesity due to excess calories; R73.9 Hyperglycemia, unspecified; E78.00 Pure hypercholesterolemia, unspecified; K21.9 Gastro-esophageal reflux disease without esophagitis; R19.5 Other fecal abnormalities; M50.30 Other cervical disc degeneration, unspecified cervical region; M17.0 Bilateral primary osteoarthritis of knee; F41.1 Generalized anxiety disorder; J44.9 Chronic obstructive pulmonary disease, unspecified; F17.210 Nicotine dependence, cigarettes, uncomplicated; Z98.1 Arthrodesis status; Z68.41 Body mass index [BMI] 40.0-44.9, adult | CPT/HCPCS: 96127; 99396 ==